=== PATIENT | female | born 1950 | race Caucasian/White ===

== ENCOUNTER 2021-02-10 13:30 | Emergency (ER) | payer MEDICARE, MEDICAID, SELFPAY ==
[2021-02-10 13:40] VITALS: BP 164/74; PULSE 107; RESP 18; TEMP 36.7; O2SAT 97; BMI 25.4
[2021-02-10 14:00] VITALS: BP 156/68; PULSE 102; O2SAT 98
[2021-02-10 14:07] LABS: Add Manual Diff / Slide Review NO; Basophils Absolute Auto 100 /uL (0-100); Basophils Percent Auto 0.9 % (0-2); Eosinophils Absolute Auto 100 /uL (0-450); Eosinophils Percent Auto 0.9 % (2-4); Hemoglobin 12.9 g/dL (12.0-16.0); Lymphocytes Absolute Auto 1600 /uL (1100-4500); Lymphocytes Percent Auto 21.3 % (25-40); Mean Corpuscular HGB Conc 33.1 % (30-36); Mean Corpuscular Hemoglobin 29.8 PG (26-34); Mean Corpuscular Volume 89.8 fL (80-100); Monocytes Absolute Auto 500 /uL (0-900); Monocytes Percent Auto 7.2 % (3-14); Neutrophils Absolute Auto 5200 /uL (1500-7000); Neutrophils Percent Auto 69.7 % (50-75); Platelet Count 234 X10^3/uL (150-400); Red Blood Cell Count 4.34 X10^6/uL (4.0-5.2); Red Cell Distribution Width 13.6 % (11.6-14.8); White Blood Cell Count 7.5 X10^3/uL (4.5-11.0)
[2021-02-10 14:11] LABS: HEMOLYSIS < 15 (0-50)
--- NOTE | 2021-02-10 14:14 | ED.GENADULT ---
HPI - General Adult General Chief complaint: Dizziness Stated complaint: up and down blood pressure. very faint. Time Seen by Provider: 02/10/21 13:44 Source: patient Mode of arrival: Ambulatory Limitations: no limitations History of Present Illness HPI narrative: Patient is a 70-year-old female. Does have a history of high blood pressure. Is on medications for her blood pressure. She has been taking as directed. She did not take an extra dose of it this morning. She states that this morning at around noon she became very lightheaded. She went to lay down. She took her blood pressure. It was 99/62. She states that this is low for her as she is normally elevated. She continued to feel poorly and her blood pressure began to increase slowly. It then was elevated then decreased again. It she came in because she had these changes in blood pressures and because her lightheadedness. Related Data Home Medications Medication Instructions Recorded Confirmed [COD LIVER OIL] PO QDAY #0 08/04/17 [FRANKINCENSE] PO QDAY #0 08/04/17 [HAWTHORN] PO QDAY #0 08/04/17 [OREGANOL] PO QDAY #0 08/04/17 Allergies Allergy/AdvReac Type Severity Reaction Status Date / Time Penicillins [PENICILLINS] Allergy Unknown Unverified 11/05/17 12:56 Review of Systems Constitutional Constitutional: Denies fever(s) Cardiovascular Cardiovascular: Denies chest pain, Reports syncope and Denies rapid heart rate Respiratory Respiratory: Reports system reviewed and no additional complaints, except as documented Gastrointestinal Gastrointestinal: Reports system reviewed and no additional complaints, except as documented, Reports nausea and Denies vomiting Genitourinary Genitourinary: Reports system reviewed and no additional complaints, except as documented and Denies dysuria Musculoskeletal Musculoskeletal: Reports system reviewed and no additional complaints, except as documented Integumentary/Breasts Skin/Breast: Reports system reviewed and no additional complaints, except as documented Neurologic Neurologic: Reports syncope Psychiatric Psychiatric: Reports system reviewed and no additional complaints, except as documented Hematologic/Lymphatic On Anticoagulants: No Allergic/Immunologic Allergic/Immunologic: Reports system reviewed and no additional complaints, except as documented Patient History Medical History Hypertension Social History Smoking Status: Former smoker Smoking Status: Former smoker alcohol intake frequency: 0-2 drinks per day Substance Use Type: does not use Exam Initial Vital Signs Initial Vital Signs: Vital Signs Temperature 98.1 F 02/10/21 13:40 Pulse Rate 107 H 02/10/21 13:40 Respiratory Rate 18 02/10/21 13:40 Blood Pressure 164/74 H 02/10/21 13:40 Pulse Oximetry 97 02/10/21 13:40 Const General: cooperative, healthy appearing and comfortable HENND Head: normal to inspection and normocephalic Eyes General: appearance normal, both eyes and all related structures Chest Chest: normal inspection of the chest Resp Effort & Inspection: normal respiratory effort Auscultation: clear to auscultation bilaterally Cardio Rate: regular rate Rhythm: regular rhythm GI Inspection: normal to inspection Skin Lesions: no lesions Neuro General: patient alert, patient awake, patient oriented x3 and moves all extremities Extrem General: normal to inspection and capillary refill normal Psych Appearance: grossly normal and well kempt Course Orders Ordered: ED Orders 02/10/21 13:37 EKG-12 Lead Stat 02/10/21 14:00 Complete Blood Count AUTO DIFF Stat Comprehensive Metabolic Panel Stat Lipase Stat Troponin & CK Cardiac Panel Stat Vital Signs Vital signs: Vital Signs - 8 hr 02/10/21 13:40 02/10/21 14:00 02/10/21 14:35 Temperature 98.1 F Pulse Rate 107 H 102 H 92 H Respiratory Rate 18 Blood Pressure 164/74 H 156/68 H 160/68 H Pulse Oximetry 97 98 97 02/10/21 15:00 02/10/21 15:20 Temperature Pulse Rate 85 86 Respiratory Rate Blood Pressure 155/77 H 164/85 H Pulse Oximetry 99 98 Medical Decision Making Lab Data Lab results reviewed: Yes I reviewed the patient's lab results. Result diagrams: 02/10/21 14:00 02/10/21 14:00 Labs: Lab Results 02/10/21 02/10/21 Range/Units 14:00 14:00 WBC 7.5 (4.5-11.0) X10^3/uL RBC 4.34 (4.0-5.2) X10^6/uL Hgb 12.9 (12.0-16.0) g/dL Hct 39.0 (36-46) % MCV 89.8 (80-100) fL MCH 29.8 (26-34) PG MCHC 33.1 (30-36) % RDW 13.6 (11.6-14.8) % Plt Count 234 (150-400) X10^3/uL Neut % (Auto) 69.7 (50-75) % Lymph % (Auto) 21.3 L (25-40) % [place] % (Auto) 7.2 (3-14) % Eos % (Auto) 0.9 L (2-4) % Baso % (Auto) 0.9 (0-2) % Neut # (Auto) 5200 (0330-2827) /uL Lymph # (Auto) 1600 (8084-3735) /uL [place] # (Auto) 500 (0-900) /uL Eos # (Auto) 100 (0-450) /uL Baso # (Auto) 100 (0-100) /uL Sodium 136 L (137-145) mmol/L Potassium 3.4 (3.4-5.1) mmol/L Chloride 104 (98-107) mmol/L Carbon Dioxide 24 (22-32) mmol/L BUN 20 H (7-17) mg/dL Creatinine 0.92 (0.52-1.04) mg/dL Estimated GFR > 60.0 (>60) mL/min BUN/Creatinine Ratio 21.7 (6-22) Glucose 132 H (80-110) mg/dL Calcium 10.0 (8.4-10.2) mg/dL Total Bilirubin 1.4 H (0.2-1.3) mg/dL AST 39 H (14-36) IU/L ALT 22 (<35) IU/L Alkaline Phosphatase 62 (38-126) U/L Total Creatine Kinase 138 H (30-135) U/L CK-MB (CK-2) 1.60 (<2.37) ng/mL CK-MB (CK-2) Rel Index 1.2 L (1.5-5.0) % Troponin I < 0.012 (0.01-0.034) ng/mL Total Protein 7.6 (6.3-8.2) g/dL Albumin 4.5 (3.5-5.0) g/dL Globulin 3.1 (1.7-4.1) g/dL Albumin/Globulin Ratio 1.5 (1.0-2.8) Lipase 160 (23-300) U/L Urine Dip Bedside Urine Glucose Negative Bedside Urine Bilirubin - Negative Bedside Urine Ketone - Negative Urine Specific [place] 1.010 Bedside Urine Occult Blood - Negative Bedside Urine pH 6 Bedside Urine Protein - Negative Bedside Urine Urobilinogen - Negative Bedside Urine Nitrite - Negative Bedside Urine Leukocytes - Negative Esterase Point of care testing: Urine Dip Bedside Urine Glucose Negative Bedside Urine Bilirubin - Negative Bedside Urine Ketone - Negative Urine Specific [place] 1.010 Bedside Urine Occult Blood - Negative Bedside Urine pH 6 Bedside Urine Protein - Negative Bedside Urine Urobilinogen - Negative Bedside Urine Nitrite - Negative Bedside Urine Leukocytes - Negative Esterase ECG Data Attestation: I personally reviewed and interpreted this ECG as follows: Interpretation: Normal sinus rhythm Ventricular rate 97 Normal axis Normal QRS Normal QTC No ST T wave changes MDM Narrative Medical decision making narrative: Neurovascular intact, labs unremarkable. EKG is unremarkable. Low suspicion for ACS. Blood pressure has been relatively stable here in the ER. Informed her that she should continue to take her blood pressure at home and to discuss with her primary doctor if she continues to have issues. No indication for admission to the hospital. She was given return precautions and follow-up instructions. She expressed understanding and agreement. Discharge Plan Departure Patient Disposition: Home Clinical Impression: Blood pressure instability Instructions: How to Monitor Your Blood Pressure at Home Activity Restrictions/Additional Instructions: I do recommend that you continue to take your blood pressure at home and record the values. Continue to take all of your medications as directed. Contact your primary doctor for follow-up. Return to the emergency department for any new or worsening symptoms Prescriptions: No Action [COD LIVER OIL] PO QDAY Qty: 0 RF: 0 [HAWTHORN] PO QDAY Qty: 0 RF: 0 [OREGANOL] PO QDAY Qty: 0 RF: 0 [FRANKINCENSE] PO QDAY Qty: 0 RF: 0
[2021-02-10 14:18] LABS: Alanine Aminotransferase 22 IU/L (<35); Albumin 4.5 g/dL (3.5-5.0); Albumin Globulin Ratio 1.5 (1.0-2.8); Alkaline Phosphatase 62 U/L (38-126); Aspartate Aminotransferase 39 IU/L (14-36); BUN Creatinine Ratio 21.7 (6-22); Bilirubin Total 1.4 mg/dL (0.2-1.3); Blood Urea Nitrogen 20 mg/dL (7-17); Carbon Dioxide 24 mmol/L (22-32); Chloride 104 mmol/L (98-107); Creatine Kinase 138 U/L (30-135); Estimated Glomerular Filt Rate > 60.0 mL/min (>60); Globulin 3.1 g/dL (1.7-4.1); Glucose 132 mg/dL (80-110); Lipase 160 U/L (23-300); Potassium 3.4 mmol/L (3.4-5.1); Sodium 136 mmol/L (137-145); Total Protein 7.6 g/dL (6.3-8.2)
[2021-02-10 14:29] LABS: Troponin I < 0.012 ng/mL (0.01-0.034)
[2021-02-10 14:33] LABS: CKMB % Relative Index 1.2 % (1.5-5.0)
[2021-02-10 14:35] VITALS: BP 160/68; PULSE 92; O2SAT 97
[2021-02-10 15:00] VITALS: BP 131/60; BP 155/77; PULSE 85; PULSE 88; O2SAT 97; O2SAT 99
[2021-02-10 15:20] VITALS: BP 164/85; PULSE 86; O2SAT 98
== END 2021-02-10 15:39 | disposition home or self-care (01) ==
PROVIDERS: Emergency Provider Emergency Medicine
DX: R42 Dizziness and giddiness (principal); I99.8 Other disorder of circulatory system; R07.9 Chest pain, unspecified
CPT/HCPCS: 36415; 80053; 81003; 82550; 82553; 83690; 84484; 85025; 93005; 93010; 99283; 99284

== ENCOUNTER 2022-03-26 13:57 | Observation (INO) | payer MEDICARE, MEDICAID, SELFPAY ==
[2022-03-26] VITALS (8 sets, daily range): BP systolic 146–184; BP diastolic 67–91; PULSE 68–99; RESP 16–38; TEMP 36.5–36.9; O2SAT 97–99; BMI 25.2; BMI 24.7
--- NOTE | 2022-03-26 14:05 | DI.CT.S_ITS ---
PROCEDURE: CT HEAD/BRAIN WO CON INDICATIONS: near syncope, word finding TECHNIQUE: Noncontrast 4.5 mm thick angled axial sections acquired from the foramen magnum to the vertex, with coronal and sagittal reformats. For radiation dose reduction, the following was used: automated exposure control, adjustment of mA and/or kV according to patient size. COMPARISON: [facility], MR, BRAIN WITHOUT CONTRAST, 08/04/2017, 16:00. FINDINGS: Image quality: Excellent. CSF spaces: Basal cisterns are patent. No extra-axial fluid collections. Ventricles are normal in size and shape. Brain: No midline shift. Small extra-axial calcified mass in the right frontal lobe. No intracranial hemorrhage. No area of hypodensity in a large vascular distribution to suggest acute infarction. Periventricular hypodensity consistent with chronic microvascular ischemic change. Age-related parenchymal loss. Skull and face: Calvarium and visualized facial bones are intact, without suspicious lesions. Sinuses: Visualized sinuses and mastoids are clear. IMPRESSION: No acute intracranial abnormality. Chronic microvascular ischemic disease. Probable small calcified right frontal meningioma. Dictated by: Sukhjinder Mukherjee M.D. on 03/26/2022 at 14:37 Approved by: Sukhjinder Mukherjee M.D. on 03/26/2022 at 14:41
--- NOTE | 2022-03-26 14:05 | DI.RAD.S_ITS ---
PROCEDURE: XR CHEST 1V INDICATIONS: chest pain TECHNIQUE: One view of the chest was acquired. COMPARISON: [facility], CR, XR CHEST 2 VIEWS, 10/10/2017, 10:53. FINDINGS: Surgical changes and devices: None. Lungs and pleura: Lungs are clear. No pleural effusions or pneumothorax. Mediastinum: Mediastinal contours appear unchanged. Heart size is within normal limits. Bones and chest wall: No suspicious bony lesions. Overlying soft tissues appear unremarkable. IMPRESSION: No acute cardiopulmonary abnormality. Dictated by: Sukhjinder Mukherjee M.D. on 03/26/2022 at 14:41 Approved by: Sukhjinder Mukherjee M.D. on 03/26/2022 at 14:43
[2022-03-26 14:13] LABS: Add Manual Diff / Slide Review NO; Basophils Absolute Auto 100 /uL (0-100); Basophils Percent Auto 1.2 % (0-2); Eosinophils Absolute Auto 100 /uL (0-450); Eosinophils Percent Auto 1.4 % (2-4); Hematocrit 41.8 % (36-46); Hemoglobin 13.7 g/dL (12.0-16.0); Lymphocytes Absolute Auto 2500 /uL (1100-4500); Lymphocytes Percent Auto 40.2 % (25-40); Mean Corpuscular HGB Conc 32.7 % (30-36); Mean Corpuscular Hemoglobin 29.5 PG (26-34); Mean Corpuscular Volume 90.1 fL (80-100); Monocytes Absolute Auto 500 /uL (0-900); Monocytes Percent Auto 7.7 % (3-14); Neutrophils Absolute Auto 3000 /uL (1500-7000); Neutrophils Percent Auto 49.5 % (50-75); Platelet Count 264 X10^3/uL (150-400); Red Blood Cell Count 4.64 X10^6/uL (4.0-5.2); Red Cell Distribution Width 14.4 % (11.6-14.8); White Blood Cell Count 6.1 X10^3/uL (4.5-11.0)
[2022-03-26 14:20] LABS: Prothrombin Time 11.3 SECONDS (10.1-12.7)
[2022-03-26 14:22] LABS: PTT Partial Thromboplastin Tim 31 SECONDS (26-36)
[2022-03-26 14:25] LABS: Alanine Aminotransferase 16 IU/L (<35); Albumin 4.7 g/dL (3.5-5.0); Albumin Globulin Ratio 1.3 (1.0-2.8); Alkaline Phosphatase 46 U/L (38-126); Aspartate Aminotransferase 27 IU/L (14-36); BUN Creatinine Ratio 16.3 (6-22); Bilirubin Total 0.9 mg/dL (0.2-1.3); Blood Urea Nitrogen 17 mg/dL (7-17); Calcium 10.2 mg/dL (8.4-10.2); Carbon Dioxide 23 mmol/L (22-32); Chloride 105 mmol/L (98-107); Creatine Kinase 77 U/L (30-135); Estimated Glomerular Filt Rate 57 mL/min (>60); Globulin 3.6 g/dL (1.7-4.1); Glucose 120 mg/dL (80-110); HEMOLYSIS < 15 (0-50); Lipase 193 U/L (23-300); Magnesium 1.7 mg/dL (1.6-2.3); Potassium 3.6 mmol/L (3.4-5.1); Sodium 138 mmol/L (137-145); Total Protein 8.3 g/dL (6.3-8.2)
[2022-03-26 14:36] LABS: Troponin I < 0.012 ng/mL (0.01-0.034)
--- NOTE | 2022-03-26 15:18 | ED.SYNCOPE ---
HPI - Syncope General Chief Complaint: Syncope Stated Complaint: near syncope Time Seen by Provider: 03/26/22 14:39 Source: patient and EMS Mode of arrival: EMS Limitations: no limitations History of Present Illness HPI narrative: This is a 61-year-old female with history of atypical migraine, hypertension who presents with complaint of near syncopal episodes slight headedness she started having symptoms about a week ago have been intermittent but typically when she is upright or looking. Patient notes she is had some blurry vision which is still persistent. She denies headache, she does have a history of silent migraines states she will get an aura but has not had any recently. She describes dizziness and near syncopal episodes with tunnel vision. No loss of consciousness she is felt shaky and weak. She denies any vertigo symptoms. She did check her blood pressure home she was hypotensive 103/62 but rechecked and was 128/60. Patient denies chest pain or pressure she is had some shortness of breath on occasion but not persistently, she had nausea today but not any vomiting. She states she had trouble repeating words and describes expressive aphasia where she knew what she wanted to say but could not repeat a sentence back to the EMS medics and her daughter at bedside states she also seemed to have trouble expressing herself earlier today. Patient thought she might have noticed a little droop on the right. She states no new numbness or tingling, no weakness, no issues with bowel movements, urination or swelling of extremities. Patient is on 50 mg losartan daily, she is had a hysterectomy, she is allergic to penicillin and shrimp, no tobacco, she is 2 or 3 alcoholic drinks weekly, no illicit. Her primary care is through [facility]. Related Data Home Medications Medication Instructions Recorded Confirmed [COD LIVER OIL] PO QDAY ##0 08/04/17 [FRANKINCENSE] PO QDAY ##0 08/04/17 [HAWTHORN] PO QDAY ##0 08/04/17 [OREGANOL] PO QDAY ##0 08/04/17 Allergies Allergy/AdvReac Type Severity Reaction Status Date / Time Penicillins [PENICILLINS] Allergy Unknown Unverified 11/05/17 12:56 Review of Systems Review of Systems ROS Unobtainable: All systems reviewed & are unremarkable except as noted in HPI and below Patient History Medical History Hypertension Social History Smoking Status: Former smoker Smoking Status: Former smoker alcohol intake frequency: 0-2 drinks per day Substance Use Type: does not use Exam Narrative Exam Narrative: GEN: well nourished, well appearing female, alert and oriented x 3, patient appears to be in mild distress. HEENT: Atraumatic, pupils are equal round reactive to light, extraocular movements are intact, nares are clear, TMs are clear with no fluid, there is no conjunctival pallor. Throat is clear without any exudates, erythema, tonsillar enlargement or uvular deviation, possible slight decrease of nasal labial fold but difficult to ascertain, no other facial droop noted. HEART: Regular rate and rhythm without murmur, clicks, rubs. No carotid bruits, pulses are equal in upper and lower extremities LUNGS:Lungs clear to auscultation, no wheezes, rales, crackles, chest moves symmetrically ABD:bowel sounds normal, soft, non-tender, no guarding, rebound, rigidity, no masses noted, no hepatosplenomegaly :No CVA tenderness MSCL: Non-tender, no muscle atrophy, muscles strength 5/5 upper and lower extremities, full range of motion, normal gait NEURO:CN 2-12 intact, sensation normal, reflexes 2/4 upper and lower extremities. finger nose finger test normal, heel brink test normal, romberg normal SKIN: No rash, erythema or other skin changes Initial Vital Signs Initial Vital Signs: Vital Signs Temperature 98.4 F 03/26/22 14:11 Pulse Rate 95 H 03/26/22 14:11 Respiratory Rate 16 03/26/22 14:11 Blood Pressure 146/70 H 03/26/22 14:11 Pulse Oximetry 97 03/26/22 14:11 Oxygen Delivery Method 03/26/22 14:11 Scores NIH Stroke Scale Level of Conciousness: Alert, keenly responsive Ask month/age: Answers both questions correctly. Open/close eyes, close hand: Performs both tasks correctly Best gaze horizontal: Normal Visual smith: No visual loss Facial palsy: Minor paralysis, flattened nasolabial fold, asymmetry on smiling Left arm drift: No drift for full 10 sec Right arm drift: No drift for full 10 sec Left leg drift: No drift for full 5 sec Right leg drift: No drift for full 5 sec Limb ataxia: Absent Sensory on face/arms/legs: Normal, no sensory loss Best language: Mild to moderate, slurs some words Dysarthria: Normal Extinction or inattention: No abnormality Total NIH Stroke scale score: 2 Course Orders Ordered: ED Orders 03/26/22 13:40 BNP [NT-proBNP (BNP-Adult 18+)] Stat Complete Blood Count AUTO DIFF Stat Comprehensive Metabolic Panel Stat Lipase Stat Magnesium Stat Partial Thromboplastin Time Stat Prothrombin Time INR Stat Troponin & CK Cardiac Panel Stat 03/26/22 14:05 CT head/brain wo con Stat XR chest 1V Stat EKG-12 Lead Stat 03/26/22 15:11 COVID19 -Nasal RAPID/Pre-Proc Stat 03/26/22 16:01 CT angio head and neck Stat 03/26/22 20:01 EC echo doppler complete Stat MR head/brain wo con Stat Discontinued Medications Aspirin (Aspirin 81 Mg Chew Tab) 324 mg PO NOW ONE Stop: 03/26/22 16:02 Last Admin: 03/26/22 16:31 Dose: 324 mg Documented By: LINDA Vital Signs Vital signs: Vital Signs - 8 hr 03/26/22 14:11 03/26/22 17:30 03/26/22 17:30 Temperature 98.4 F Pulse Rate 95 H 87 Respiratory Rate 16 35 H Blood Pressure 146/70 H 181/91 H Pulse Oximetry 97 98 Oxygen Delivery Method Room Air 03/26/22 18:00 03/26/22 18:00 Temperature Pulse Rate 83 Respiratory Rate 35 H Blood Pressure 171/83 H Pulse Oximetry 98 Oxygen Delivery Method MDM - Syncope Lab Data Result diagrams: 03/26/22 13:40 03/26/22 13:40 Labs: Lab Results 03/26/22 03/26/22 03/26/22 Range/Units 13:40 13:40 13:40 WBC 6.1 (4.5-11.0) X10^3/uL RBC 4.64 (4.0-5.2) X10^6/uL Hgb 13.7 (12.0-16.0) g/dL Hct 41.8 (36-46) % MCV 90.1 (80-100) fL MCH 29.5 (26-34) PG MCHC 32.7 (30-36) % RDW 14.4 (11.6-14.8) % Plt Count 264 (150-400) X10^3/uL Neut % (Auto) 49.5 L (50-75) % Lymph % (Auto) 40.2 H (25-40) % [place] % (Auto) 7.7 (3-14) % Eos % (Auto) 1.4 L (2-4) % Baso % (Auto) 1.2 (0-2) % Neut # (Auto) 3000 (1230-4652) /uL Lymph # (Auto) 2500 (1059-3732) /uL [place] # (Auto) 500 (0-900) /uL Eos # (Auto) 100 (0-450) /uL Baso # (Auto) 100 (0-100) /uL PT 11.3 (10.1-12.7) SECONDS INR 1.0 (0.9-1.3) APTT 31 (26-36) SECONDS Sodium 138 (137-145) mmol/L Potassium 3.6 (3.4-5.1) mmol/L Chloride 105 (98-107) mmol/L Carbon Dioxide 23 (22-32) mmol/L BUN 17 (7-17) mg/dL Creatinine 1.04 (0.52-1.04) mg/dL Estimated GFR 57 L (>60) mL/min BUN/Creatinine Ratio 16.3 (6-22) Glucose 120 H (80-110) mg/dL Calcium 10.2 (8.4-10.2) mg/dL Magnesium 1.7 (1.6-2.3) mg/dL Total Bilirubin 0.9 (0.2-1.3) mg/dL AST 27 (14-36) IU/L ALT 16 (<35) IU/L Alkaline Phosphatase 46 (38-126) U/L Total Creatine Kinase 77 (30-135) U/L CK-MB (CK-2) TNP CK-MB (CK-2) Rel Index TNP Troponin I < 0.012 (0.01-0.034) ng/mL NT-Pro-B Natriuret Pep (<125) pg/mL Total Protein 8.3 H (6.3-8.2) g/dL Albumin 4.7 (3.5-5.0) g/dL Globulin 3.6 (1.7-4.1) g/dL Albumin/Globulin Ratio 1.3 (1.0-2.8) Lipase 193 (23-300) U/L SARS-CoV-2 (PCR) (Negative) 03/26/22 03/26/22 Range/Units 13:40 15:11 WBC (4.5-11.0) X10^3/uL RBC (4.0-5.2) X10^6/uL Hgb (12.0-16.0) g/dL Hct (36-46) % MCV (80-100) fL MCH (26-34) PG MCHC (30-36) % RDW (11.6-14.8) % Plt Count (150-400) X10^3/uL Neut % (Auto) (50-75) % Lymph % (Auto) (25-40) % [place] % (Auto) (3-14) % Eos % (Auto) (2-4) % Baso % (Auto) (0-2) % Neut # (Auto) (7013-1128) /uL Lymph # (Auto) (4031-5644) /uL [place] # (Auto) (0-900) /uL Eos # (Auto) (0-450) /uL Baso # (Auto) (0-100) /uL PT (10.1-12.7) SECONDS INR (0.9-1.3) APTT (26-36) SECONDS Sodium (137-145) mmol/L Potassium (3.4-5.1) mmol/L Chloride (98-107) mmol/L Carbon Dioxide (22-32) mmol/L BUN (7-17) mg/dL Creatinine (0.52-1.04) mg/dL Estimated GFR (>60) mL/min BUN/Creatinine Ratio (6-22) Glucose (80-110) mg/dL Calcium (8.4-10.2) mg/dL Magnesium (1.6-2.3) mg/dL Total Bilirubin (0.2-1.3) mg/dL AST (14-36) IU/L ALT (<35) IU/L Alkaline Phosphatase (38-126) U/L Total Creatine Kinase (30-135) U/L CK-MB (CK-2) CK-MB (CK-2) Rel Index Troponin I (0.01-0.034) ng/mL NT-Pro-B Natriuret Pep 153 H (<125) pg/mL Total Protein (6.3-8.2) g/dL Albumin (3.5-5.0) g/dL Globulin (1.7-4.1) g/dL Albumin/Globulin Ratio (1.0-2.8) Lipase (23-300) U/L SARS-CoV-2 (PCR) Negative (Negative) Urine Dip Bedside Urine Glucose Negative Bedside Urine Bilirubin - Negative Bedside Urine Ketone - Negative Urine Specific [place] 1.010 Bedside Urine Occult Blood - Negative Bedside Urine pH 6.0 Bedside Urine Protein - Negative Bedside Urine Urobilinogen - Negative Bedside Urine Nitrite - Negative Bedside Urine Leukocytes - Negative Esterase Imaging Data CT scan - head: Radiologist's Impression: Close Head CT (Signed) Call,[facility] 03/26/22 Chest X-Ray (Signed) Call,[facility] 03/26/22 Launch?[place] [address] CT Scan Report Signed Patient: Meg Ibarra MR#: [id number] : 1950 Acct:[id number] Age/Sex: 71 / F Date of Service: 03/26/22 Loc: Accession Number: [id number] ?? Procedure: CT head/brain wo con Ordering Provider: Malina Wheeler D.O. PROCEDURE:? CT HEAD/BRAIN WO CON ? INDICATIONS:? near syncope, word finding ? TECHNIQUE:? Noncontrast 4.5 mm thick angled axial sections acquired from the foramen magnum to the vertex, with coronal and sagittal reformats.? For radiation dose reduction, the following was used:? automated exposure control, adjustment of mA and/or kV according to patient size.? ? COMPARISON:? [facility], MR, BRAIN WITHOUT CONTRAST, 08/04/2017, 16:00. ? FINDINGS:? Image quality:? Excellent.? ? CSF spaces:? Basal cisterns are patent.? No extra-axial fluid collections.? Ventricles are normal in size and shape.? ? Brain:? No midline shift.? Small extra-axial calcified mass in the right frontal lobe.? No intracranial hemorrhage.? No area of hypodensity in a large vascular distribution to suggest acute infarction. Periventricular hypodensity consistent with chronic microvascular ischemic change. Age-related parenchymal loss. ? Skull and face:? Calvarium and visualized facial bones are intact, without suspicious lesions.? ? Sinuses:? Visualized sinuses and mastoids are clear.? ? IMPRESSION:? No acute intracranial abnormality. ? Chronic microvascular ischemic disease. ? Probable small calcified right frontal meningioma. ? ? Dictated by: Sukhjinder Mukherjee M.D. on 03/26/2022 at 14:37 ? ? Approved by: Sukhjinder Mukherjee M.D. on 03/26/2022 at 14:41?? CTA - brain/neck: Radiologist's Impression: Meg Ibarra??71??F??1950 ? Allergy/Adv: Penicillins Close Head/Neck CTA (Signed) Socrates Tinajero - 03/26/[address] (Signed) Call,Sukhjinder - 03/26/22 Chest X-Ray (Signed) Call,Sukhjinder - 03/26/22 Launch?[place] [address] CT Scan Report Signed Patient: Meg Ibarra MR#: [id number] : 1950 Acct:[id number] Age/Sex: 71 / F Date of Service: 03/26/22 Loc: ED Accession Number: [id number] ?? Procedure: CT angio head and neck Ordering Provider: Malina Wheeler D.O. PROCEDURE:? CT ANGIO HEAD AND NECK ? INDICATIONS:? expressive aphasia, near syncope ? TECHNIQUE:? Noncontrast images were performed earlier in the day and not repeated.? ? After the administration of intravenous contrast, 1 mm thick sections acquired from the aortic arch through the [place] of [place].? Post-contrast 4.5 mm thick sections then re-acquired from the foramen magnum to the vertex.? 3-dimensional tfavmyw-dbpnqjrgj-xfjtoqcqed (MIP) and/or volume rendering reformats were acquired of the central intracranial vasculature and neck separately. For radiation dose reduction, the following was used:? automated exposure control, adjustment of mA and/or kV according to patient size.? ? COMPARISON:? [facility], CR, XR CHEST 1V, 03/26/2022, 14:23.? [facility], CT, CT HEAD/BRAIN WO CON, 03/26/2022, 14:19.? [facility], MR, BRAIN WITHOUT CONTRAST, 08/04/2017, 16:00.? [facility], US, US CAROTID BILATERAL, 04/07/2018, 15:16. ? FINDINGS:? Image quality:? Excellent.? ? BRAIN:? CSF spaces:? Ventricles are normal in size and shape.? Basal cisterns are patent.? No extra-axial fluid collections.? ? Brain:? No midline shift.? No intracranial bleeds.? There is a likely rim calcified right frontal meningioma again seen, measuring 1 cm.? Nicole-white matter interface appears intact.? ? Skull and face:? Calvarium and facial bones appear intact, without suspicious lesions.? Orbits appear normal.? ? Sinuses:? Sinuses and mastoids are clear.? ? HEAD CT ANGIOGRAPHY:? Anterior circulation:? Intracranial internal carotid arteries are normal in size and flow.? The flow within the paired anterior cerebral arteries is normal and symmetric.? The flow within the middle cerebral arteries is normal and symmetric.? The anterior communicating artery is seen.? No aneurysms are seen.? ? Posterior circulation:? The left vertebral artery largely terminates in the left posterior inferior cerebellar artery.? The right V4 segment is within normal limits.? There is a normal appearing basilar artery.? Flow within the posterior cerebral arteries is normal and symmetric.? No aneurysms are seen.? ? NECK CT ANGIOGRAPHY:? Carotid system:? The great vessels demonstrate a conventional anatomy as they arise from the aortic arch.? The origins of the common carotid arteries appear patent.? The common carotid arteries demonstrate normal caliber and courses.? The bifurcation regions are both widely patent.? The internal carotid arteries demonstrate normal calibers and courses.? ? Posterior circulation:? The origins of the vertebral arteries both appear widely patent.? The more superior extracranial portions of both vertebral arteries also demonstrate normal courses and calibers.? They join to form a normal appearing basilar artery.? ? Soft tissues:? Visualized neck soft tissues demonstrate no suspicious abnormalities.? ? Bones:? No suspicious bony lesions.? Visualized cervical spine appears normally aligned.? Moderate cervical spine degenerative changes are seen. ? ? IMPRESSION:? No significant intracranial arterial abnormality is seen.? ? Within the arteries of the neck, no hemodynamically significant stenosis can be seen. ? ? If there is strong clinical suspicion for an acute stroke, please consider a brain MRI for further evaluation, as it is more sensitive (assuming that there is no contraindication to MRI). ? ? ? Incidental note is made of: Apparent 1 cm rim calcified right frontal extra-axial meningioma Cervical spine degenerative change ? Any quantitative measurements of stenosis were performed using NASCET criteria.? ? ? Dictated by: Socrates Tinajero M.D. on 03/26/2022 at 15:40 ? ? Approved by: Socrates Tinajero M.D. on 03/26/2022 at 15:44?? ECG Data Attestation: I personally reviewed and interpreted this ECG as follows: Prior ECG tracings: not available for review Interpretation: Sinus rhythm rate of 94 DC 192 QRS is 72 and QTC of 430. No acute ST changes patient has Q-wave in 3 and AVF. No elevation. No priors available MDM Narrative Medical decision making narrative: This is a 71-year-old female who presents with multiple near syncopal type episodes but also some expressive aphasia earlier today and some description of blurry vision. Patient is noted this has been going on for several days. Her and her daughter both notes some expressive aphasia which has seemed to improved. She was hypotensive on home blood pressure check 103/62 with a low-dose but on repeat was 120s. Patient has not had any other numbness, tingling or other neurologic changes she does describe maybe some facial droop change on the right. Patient's initial head CT is negative except for meningioma which is small in unlikely cause of her symptomatology, CBC, troponin CMP are negative. Chest x-ray shows no acute change. No other clear cause TIA versus syncope, arrhythmia or other causes were entertained. CT head and neck angio was obtained for TIA workup. Patient has an NIH of 1 with some difficulty with words on NIH scale. Patient is outside the window for tPA. Also considered possible valvular or cardiac changes and patient would benefit from observation for TIA workup and echo and cardiac labs. Spoke with hospitalist, IVON Willett who accepts for observation. Asked if we would go ahead and order MRI we might not be able to get it tonight but currently get the order in. Discharge Plan Departure Patient Disposition: Admitted as Observation Clinical Impression: TIA (transient ischemic attack), Near syncope
[2022-03-26 15:58] LABS: COVID19 -Nasal RAPID Negative (Negative)
[2022-03-26 16:00] LABS: NT-proBNP (BNP-Adult 18+) 153 pg/mL (<125)
--- NOTE | 2022-03-26 16:01 | DI.CT.S_ITS ---
PROCEDURE: CT ANGIO HEAD AND NECK INDICATIONS: expressive aphasia, near syncope TECHNIQUE: Noncontrast images were performed earlier in the day and not repeated. After the administration of intravenous contrast, 1 mm thick sections acquired from the aortic arch through the [place] of [place]. Post-contrast 4.5 mm thick sections then re-acquired from the foramen magnum to the vertex. 3-dimensional qtjykrl-hrluvabbw-vbfzfmllxj (MIP) and/or volume rendering reformats were acquired of the central intracranial vasculature and neck separately. For radiation dose reduction, the following was used: automated exposure control, adjustment of mA and/or kV according to patient size. COMPARISON: [facility], CR, XR CHEST 1V, 03/26/2022, 14:23. [facility], CT, CT HEAD/BRAIN WO CON, 03/26/2022, 14:19. [facility], MR, BRAIN WITHOUT CONTRAST, 08/04/2017, 16:00. [facility], US, US CAROTID BILATERAL, 04/07/2018, 15:16. FINDINGS: Image quality: Excellent. BRAIN: CSF spaces: Ventricles are normal in size and shape. Basal cisterns are patent. No extra-axial fluid collections. Brain: No midline shift. No intracranial bleeds. There is a likely rim calcified right frontal meningioma again seen, measuring 1 cm. Nicole-white matter interface appears intact. Skull and face: Calvarium and facial bones appear intact, without suspicious lesions. Orbits appear normal. Sinuses: Sinuses and mastoids are clear. HEAD CT ANGIOGRAPHY: Anterior circulation: Intracranial internal carotid arteries are normal in size and flow. The flow within the paired anterior cerebral arteries is normal and symmetric. The flow within the middle cerebral arteries is normal and symmetric. The anterior communicating artery is seen. No aneurysms are seen. Posterior circulation: The left vertebral artery largely terminates in the left posterior inferior cerebellar artery. The right V4 segment is within normal limits. There is a normal appearing basilar artery. Flow within the posterior cerebral arteries is normal and symmetric. No aneurysms are seen. NECK CT ANGIOGRAPHY: Carotid system: The great vessels demonstrate a conventional anatomy as they arise from the aortic arch. The origins of the common carotid arteries appear patent. The common carotid arteries demonstrate normal caliber and courses. The bifurcation regions are both widely patent. The internal carotid arteries demonstrate normal calibers and courses. Posterior circulation: The origins of the vertebral arteries both appear widely patent. The more superior extracranial portions of both vertebral arteries also demonstrate normal courses and calibers. They join to form a normal appearing basilar artery. Soft tissues: Visualized neck soft tissues demonstrate no suspicious abnormalities. Bones: No suspicious bony lesions. Visualized cervical spine appears normally aligned. Moderate cervical spine degenerative changes are seen. IMPRESSION: No significant intracranial arterial abnormality is seen. Within the arteries of the neck, no hemodynamically significant stenosis can be seen. If there is strong clinical suspicion for an acute stroke, please consider a brain MRI for further evaluation, as it is more sensitive (assuming that there is no contraindication to MRI). Incidental note is made of: Apparent 1 cm rim calcified right frontal extra-axial meningioma Cervical spine degenerative change Any quantitative measurements of stenosis were performed using NASCET criteria. Dictated by: Socrates Tinajero M.D. on 03/26/2022 at 15:40 Approved by: Socrates Tinajero M.D. on 03/26/2022 at 15:44
[2022-03-26] MEDS: ASPIRIN 81 MG CHEW TAB 324 MG PO (16:31)
--- NOTE | 2022-03-26 20:01 | DI.ECHO.S_ITS ---
Version: 1 Study ID: [id number] [place] [address] Name: BISI ASCENCIO Study Date: 03/27/2022, 7: 30 AM : 1950 BP: 149 / 77 mmHg Gender: Female Height: 66 in Age: 71 Years Weight: 156 lb BSA: 1.80 mA? Ordering: KATHARINE ESTRADA Referring: KATHARINE ESTRADA Clinician: Svitlaan Griffith Reason For Study: TIA History: Summary Statements Normal sinus rhythm. Normal LV size and wall thickness. Normal wall motion and left ventricular systolic function. Ejection fraction is 50-55%. Stage I diastolic dysfunction. No significant valvular abnormalities. Normal chamber sizes. There is atherosclerotic plaque noted in the ascending aorta. Aortic dimensions are normal. No source of embolism found. No evidence of PFO based on color flow Doppler. No prior study available for comparison. Procedure: A two-dimensional transthoracic echocardiogram with color flow and Doppler was performed. The study quality was technically adequate. There is no prior echocardiogram noted for this patient. The patient was in sinus rhythm with heart rates between 65-71 bpm during the exam. Left Ventricle: The left ventricle is normal in size and wall thickness. The ejection fraction is estimated to be 50-55%. Right Ventricle: The right ventricle is normal in size and function. Atria: Both atria are normal in size. There is no Doppler evidence for an interatrial shunt. Mitral Valve: The mitral valve is normal in structure and function. There is trace mitral regurgitation. Aortic Valve: The aortic valve is trileaflet. The aortic valve opens well. There is no aortic valve stenosis. No aortic regurgitation is present. Tricuspid Valve: The tricuspid valve is normal in structure and function. The right ventricular systolic pressure is estimated to be at least 26 mmHg based on an estimated right atrial pressure of 8 mm Hg. There is mild tricuspid regurgitation. Pulmonic Valve: The pulmonic valve is not well seen, but is grossly normal. There is no pulmonic valvular regurgitation. Great Vessels: The aortic root is normal size. The IVC is dilated (diameter is greater than 2.1 cm) yet it collapses greater than 50% with a sniff. This suggests a right atrial pressure of 8 mm Hg. Pericardium/ Pleura: There is no pericardial effusion. There is no pleural effusion. 2D and M-Mode Measurements and Calculations LVIDd: 3.2 cm LVOT diam: 1.90 cm LVIDs: 2.08 cm Ao root diam: 3.1 cm IVSd: 1.03 cm Ao Arch Diam (Prox Trans): 2.8 cm LVPWd: 0.95 cm LV lee. diameter/BSA (cm/m^2): 1.78 LV sys. 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 RA area: 18.1 wagon driver salesperson? LA A2 area: 19.5 wagon driver salesperson? RA long axis: 5.2 cm LA length (vol): 5.4 cm RA vol: 53.5 ml LA vol: 52.6 ml RA : 29.7 ml/mA? LA vol index: 29.2 ml/mA? Doppler Measurements and Calculations Ao V2 max: 121.7 cm/sec LVOT Max Daniel: 104.1 cm/sec Ao V2 mean: 81.4 cm/sec LV V1 max P.3 mmHg Ao V2 VTI: 28.2 cm LV V1 VTI: 22.6 cm Ao max P.9 mmHg Ao mean P.0 mmHg RYAN(I,D): 2.27 wagon driver salesperson? RYAN(V,D): 2.42 wagon driver salesperson? RYAN indexed to BSA (cm^2/m^2): 1.26 sev ratio: 0.80 MV E max daniel: 81.7 cm/sec MV dec time: 0.29 sec MV A max daniel: 91.1 cm/sec MV E/A: 0.90 Med Peak E' Daniel: 6.3 cm/sec Lat Peak E' Daniel: 8.2 cm/sec E/e' average: 11.4 TR max daniel: 214.1 cm/sec PA mean P.87 mmHg TR max P.3 mmHg PA V2 max: 93.1 cm/sec Electronically signed by: Parris Elliott M.D. 03/27/2022, 8: 45 AM
--- NOTE | 2022-03-26 20:01 | DI.MRI.S_ITS ---
PROCEDURE: MR HEAD/BRAIN WO CON INDICATIONS: tia, near syncope TECHNIQUE: Noncontrast axial T1 spin echo, axial T2 fast spin echo, sagittal and axial FLAIR, coronal T2 fast spin echo, axial gradient echo, axial diffusion and ADC through the brain. COMPARISON: [facility], CT, CT ANGIO HEAD AND NECK, 03/26/2022, 16:07. [facility], MR, BRAIN WITHOUT CONTRAST, 08/04/2017, 16:00. FINDINGS: Image quality: There is mild motion artifact limiting evaluation. CSF Spaces: Basal cisterns are patent. No extra-axial fluid collections. Ventricles are normal in size and shape. Brain: No intracranial hemorrhage, mass, or mass effect. Nicole/white matter interface is preserved. Brainstem appears normal. Diffusion-weighted images demonstrate no acute infarcts. There are confluent subcortical and periventricular white matter areas of T2 hyperintensity redemonstrated. Normal intravascular flow voids are present. Skull and face: Calvarium has normal marrow signal. Orbits appear normal. Sinuses: Sinuses and mastoids are clear. IMPRESSION: 1. No infarct or other definite acute intracranial abnormality. 2. Extensive confluent subcortical and periventricular areas of white matter T2 hyperintensity redemonstrated. The findings are nonspecific and the differential includes severe chronic small vessel ischemic changes versus infectious or inflammatory processes such as demyelinating disease. Dictated by: Jamal Garcia M.D. on 03/26/2022 at 21:59 Approved by: Jamal Garcia M.D. on 03/26/2022 at 22:03
--- NOTE | 2022-03-26 21:46 | PC.NURSE ---
Pt updated to plan of care: She is admitted, but no beds available upstairs. Pt agreeable to stay in ER, comfort measures provided, pt oriented to room/unit.
[2022-03-26] MEDS: ATORVASTATIN 20 MG TABLET 80 MG PO (22:43)
[2022-03-26 22:58] LABS: Cholesterol 206 mg/dL (140-199); HDL Cholesterol 83 mg/dL (40-60); LDL Cholesterol Calculated 112 mg/dL (<100); Triglycerides 54 mg/dL (35-150)
[2022-03-26 23:07] LABS: Hemoglobin A1C% w Est Avg Glu 5.4 % (4.0-6.0)
[2022-03-26 23:24] LABS: Troponin I < 0.012 ng/mL (0.01-0.034)
[2022-03-27 00:42] VITALS: O2SAT 98
[2022-03-27] MEDS: SODIUM CHLORIDE 0.9% FLUSH 10 ML IV (02:41)
[2022-03-27 03:13] VITALS: BP 149/77; PULSE 66; RESP 18; TEMP 36.6; O2SAT 98
--- NOTE | 2022-03-27 03:20 | P.HP_ITS ---
History of Present Illness History of Present Illness Date Patient Seen: 03/26/22 Time Patient Seen: 20:51 Chief complaint: near syncope Narrative: Meg Ibarra?is a 61-year-old female with history of atypical migraine, hypertension who presents with complaint of near syncopal episodes with blurry vision , and expressive aphasia symptoms started about a week ago have been intermittent but typically when she is standing.? Patient initially had some blurry vision in the ED but now has resolved. She also demonstrated expressive aphasia while in the ambulance, she had trouble repeating words. knew what she wanted to say but could not repeat a sentence back to the EMS medics, her daughter reported in ED that she had trouble expressing herself earlier today.? History of silent migraines states she will get an aura but has not had any recently.? She describes dizziness and near syncopal episodes with tunnel vision.? Patient reported hypotensive 103/62 at home but recheck in ED 128/60.? All symptoms have resolved upon admit exam. Patient did report some slight skin sensation changes to the anterior right thigh and the bottom of the right foot that has persistent since March 20. Patient denies headache, No loss of consciousness, vertigo symptoms, URI s/s, tinnitus, changes in hearing, chest pain, shortness of breath, difficulty with speech, swallowing, balance, coordination, dexterity, tingling, no weakness, no issues with bowel movements, urination or swelling of extremities, abdominal pain, nausea, vomiting, diarrhea, fever, body aches, chills, recent illness injury or trauma. Patient is on 50 mg losartan daily, she is had a hysterectomy, she is allergic to penicillin and shrimp, no tobacco, she is 2 or 3 alcoholic drinks weekly, no illicit.? Her primary care is through [facility].? Patient is sitting comfortably in ED room during admit exam in no distress at this time. Vital signs are stable temp 98.4?, BP slightly elevated 171/83, HR 83 patient is slightly tachypneic with an RR 22, O2 saturation 98% on room air. Patient's CBC and CMP and liver panel all within normal limits with the exception of glucose 120, GFR 57, initial troponin WNL, NIH of 0, COVID is negative, BNP 153, head neck CTA is negative for any acute intracranial processes, head CT negative for any acute intracranial processes, chest x-ray negative for any acute cardio pulmonary processes. EKG sinus rhythm with a rate of [address] or T-wave changes there is a noted Q-wave in leads 3 and AVF seen on previous EKG. Patient admitted for neurological deficit blurry vision, expressive aphasia, near-syncope rule out TIA vs CVA. Patient History Medical History Essential hypertension Heart murmur Hypertension Kidney stone Surgical History (Updated 03/27/22 @ 03:40 by EMELYN Quevedo) History of appendectomy History of hysterectomy Family & Social History Family History (Updated 03/27/22 @ 03:41 by EMELYN Quevedo) Mother Cancer Father Congestive heart failure Hypertension Sister Heart attack Social History: household members children Prior Living Arrangements RV Safety & Behavioral: Feels Safe in Current Yes Environment Been Physically Hurt or No Threatened By a Person Tobacco & Substance use: Smoking Status Never smoker alcohol intake current alcohol intake frequency a few times a week Substance Use Type does not use Meds Home Medications and Allergies Home Medications Medication Instructions Recorded Confirmed Type [COD LIVER OIL] See Rx Instructions .Route 08/04/17 03/27/22 History .COMPLEX PRN Blood Pressure ##0 [HAWTHORN] See Rx Instructions .Route 08/04/17 03/27/22 History .COMPLEX PRN Blood Pressure ##0 Allergies Allergy/AdvReac Type Severity Reaction Status Date / Time Penicillins [PENICILLINS] Allergy Severe Swelling Verified 03/27/22 03:42 of Lip/Tongue/Throat Review of Systems Review of Systems Narrative: All 12 point systems reviewed with the patient and are negative except otherwise documented. Exam Vital Signs (past 8 hours): - 03/26/22 19:30 03/26/22 19:30 03/26/22 23:25 Temperature 97.7 F Pulse Rate 86 68 Respiratory Rate 23 18 Blood Pressure 160/74 H 167/80 H Pulse Oximetry 98 98 Oxygen Delivery Method Oxygen Flow Rate 0 03/26/22 20:42 03/27/22 00:42 03/26/22 23:00 Temperature Pulse Rate Respiratory Rate Blood Pressure Pulse Oximetry 98 98 Oxygen Delivery Method Room Air Room Air Room Air Oxygen Flow Rate 0 0 03/27/22 03:13 Temperature 97.9 F Pulse Rate 66 Respiratory Rate 18 Blood Pressure 149/77 H Pulse Oximetry 98 Oxygen Delivery Method Oxygen Flow Rate 0 Oxygen Delivery Method Room Air Oxygen Flow Rate 0 Narrative Exam Narrative: General: Patient is a well-developed, well-nourished in no distress at this time. HEENT: Normocephalic, atraumatic, extraocular muscles intact, oral pharynx is clear and mucous membranes are moist. Neck is supple and symmetric, trachea is midline, no adenopathy, no thyroid enlargement, nontender, no masses palpated. Negative for JVD Chest: Normal AP diameter and contour without kyphoscoliosis, no nasal flaring, retractions, or tachypneic labored Lungs: Auscultation of all lung smith are clear without adventitious sounds, wheezes, rhonchi, or rales. Cardio: S1 & S2 with regular rate and rhythm without rubs, or gallops, no carotid bruit, no cardiac pulsations present.1/6 murmur Abdomen: Soft nontender, negative for organomegaly, or masses. Bowel sounds are present in all 4 quadrants without guarding or rebound, no CVA tenderness. Musculoskeletal: Muscle strength and tone are equal within normal limits, no deformity, crepitus, effusions, cyanosis, clubbing or edema present. Full range of motion intact radial and pedal pulses are normal. Skin: Warm dry and intact without rashes, ulcerations or petechiae. Neuro: Alert and orientated x3, strength is +5/5 in all extremities, sensation to touch intact, no gross deficits noted of cranial nerves.GCS 15, NIH 0 Psych: Patient has a well-kept appearance, appropriate affect, mental status attitude thought context and judgment are appropriate for age. Objective Labs Result Diagrams: 03/26/22 13:40 03/26/22 13:40 Labs: Laboratory Results - last 24 hr 03/26/22 03/26/22 03/26/22 13:40 13:40 13:40 WBC 6.1 RBC 4.64 Hgb 13.7 Hct 41.8 MCV 90.1 MCH 29.5 MCHC 32.7 RDW 14.4 Plt Count 264 Neut % (Auto) 49.5 L Lymph % (Auto) 40.[address] % (Auto) 7.7 Eos % (Auto) 1.4 L Baso % (Auto) 1.2 Neut # (Auto) 3000 Lymph # (Auto) 2500 Lane # (Auto) 500 Eos # (Auto) 100 Baso # (Auto) 100 PT 11.3 INR 1.0 APTT 31 Sodium 138 Potassium 3.6 Chloride 105 Carbon Dioxide 23 BUN 17 Creatinine 1.04 Estimated GFR 57 L BUN/Creatinine Ratio 16.3 Glucose 120 H Hemoglobin A1c Calcium 10.2 Magnesium 1.7 Total Bilirubin 0.9 AST 27 ALT 16 Alkaline Phosphatase 46 Total Creatine Kinase 77 CK-MB (CK-2) TNP CK-MB (CK-2) Rel Index TNP Troponin I < 0.012 NT-Pro-B Natriuret Pep Total Protein 8.3 H Albumin 4.7 Globulin 3.6 Albumin/Globulin Ratio 1.3 Triglycerides Cholesterol LDL Cholesterol, Calc HDL Cholesterol Lipase 193 SARS-CoV-2 (PCR) 03/26/22 03/26/22 03/26/22 13:40 13:40 13:40 WBC RBC Hgb Hct MCV MCH MCHC RDW Plt Count Neut % (Auto) Lymph % (Auto) Lane % (Auto) Eos % (Auto) Baso % (Auto) Neut # (Auto) Lymph # (Auto) Lane # (Auto) Eos # (Auto) Baso # (Auto) PT INR APTT Sodium Potassium Chloride Carbon Dioxide BUN Creatinine Estimated GFR BUN/Creatinine Ratio Glucose Hemoglobin A1c 5.4 Calcium Magnesium Total Bilirubin AST ALT Alkaline Phosphatase Total Creatine Kinase CK-MB (CK-2) CK-MB (CK-2) Rel Index Troponin I NT-Pro-B Natriuret Pep 153 H Total Protein Albumin Globulin Albumin/Globulin Ratio Triglycerides 54 Cholesterol 206 H LDL Cholesterol, Calc 112 H HDL Cholesterol 83 H Lipase SARS-CoV-2 (PCR) 03/26/22 03/26/22 15:11 22:58 WBC RBC Hgb Hct MCV MCH MCHC RDW Plt Count Neut % (Auto) Lymph % (Auto) Lane % (Auto) Eos % (Auto) Baso % (Auto) Neut # (Auto) Lymph # (Auto) Lane # (Auto) Eos # (Auto) Baso # (Auto) PT INR APTT Sodium Potassium Chloride Carbon Dioxide BUN Creatinine Estimated GFR BUN/Creatinine Ratio Glucose Hemoglobin A1c Calcium Magnesium Total Bilirubin AST ALT Alkaline Phosphatase Total Creatine Kinase CK-MB (CK-2) CK-MB (CK-2) Rel Index Troponin I < 0.012 NT-Pro-B Natriuret Pep Total Protein Albumin Globulin Albumin/Globulin Ratio Triglycerides Cholesterol LDL Cholesterol, Calc HDL Cholesterol Lipase SARS-CoV-2 (PCR) Negative Assessment & Plan Assessment & Plan narrative: Meg Luais a 61-year-old female with history of atypical migraine, hypertension who presents with complaint of near syncopal episodes with blurry vision , and expressive aphasia symptoms started about a week ago, admitted for rule out TIA vs CVA. 1. Neurological deficit, (vision change, expressive aphasia, near syncope), acut e, present on admission-resolved -TIA versus CVA -head neck CTA -?Incidental note is made of: Apparent 1 cm rim calcified right frontal extra-axial meningioma Cervical spine degenerative change - head CT -No acute intracranial abnormality. Chronic microvascular ischemic disease. Probable small calcified right frontal meningioma. -chest x-ray negative, troponin x1 negative -NIH :0, GCS:15 -MR-pending -echo ordered -telemedicine -neuro checks q.4 hours -Plavix, Lipitor, ASA -A1C, Lipids, BNP, trend Trop -consult PT, OT, speech therapy -Recommend referral to Neurology on discharge for follow-up 2. Essential hypertension, uncontrolled, acute on chronic, present on admission -presenting blood pressure 171/83 -allow permissive hypertension -continue losartan 50 mg Code status:Full Surrogate decision maker: Cailin Henry Daughter COVID PCR:Negative DVT/VTE prophylaxis: Lovenox and SCDs Disposition: Patient admitted for observation, TIA versus CVA rule out, expected length of stay less than 2 midnights. I have utilized all available immediate resources to obtain, update, or review the patient's current medications. I confirmed that the patient's advanced care plan is present, Code status is documented and/or surrogate decision maker is listed in the patient's medical record. Time Spent With Patient Critical Care time: I spent a total of [] minutes of critical care time on this patient's care today; this time is exclusive of procedural time. Quality VTE Deep Vein Thrombosis/Pulmonary Embolism Present on Admission: No
[2022-03-27 03:33] LABS: Appearance Urine UA CLEAR; Bilirubin Urine UA NEGATIVE (NEGATIVE); Color Urine UA YELLOW; Glucose Urine UA NEGATIVE (Negative); Ketones Urine UA NEGATIVE (NEGATIVE); Leukocyte Esterase Urine UA NEGATIVE (NEGATIVE); Nitrite Urine UA NEGATIVE (Negative); Occult Blood Urine UA NEGATIVE (Negative); Protein Urine UA NEGATIVE (Negative); Specific Gravity Urine UA <=1.005 (1.000-1.035); Urobilinogen Urine UA 0.2 E.U./dL (0.2)
[2022-03-27 03:43] LABS: Bacteria Urine None Seen; Culture Indicated Urine Cult Not Indicated; RBC Urine None Seen (0-5/HPF); WBC Urine 0-1/HPF (0-5/HPF)
[2022-03-27 04:00] VITALS: O2SAT 98
[2022-03-27 07:00] VITALS: BP 143/48; PULSE 88; RESP 17; TEMP 36.6; O2SAT 93
--- NOTE | 2022-03-27 07:49 | PM.PN.1 ---
Exam Vital Signs (past 8 hours): - 03/27/22 00:42 03/27/22 03:13 03/27/22 04:00 Temperature 97.9 F Pulse Rate 66 Respiratory Rate 18 Blood Pressure 149/77 H Pulse Oximetry 98 98 98 Oxygen Delivery Method Room Air Room Air Oxygen Flow Rate 0 0 0 Oxygen Delivery Method Room Air Oxygen Flow Rate 0 Objective Labs Result Diagrams: 03/26/22 13:40 03/26/22 13:40 Labs: Laboratory Results - last 24 hr 03/26/22 03/26/22 03/26/22 13:40 13:40 13:40 WBC 6.1 RBC 4.64 Hgb 13.7 Hct 41.8 MCV 90.1 MCH 29.5 MCHC 32.7 RDW 14.4 Plt Count 264 Neut % (Auto) 49.5 L Lymph % (Auto) 40.2 H [place] % (Auto) 7.7 Eos % (Auto) 1.4 L Baso % (Auto) 1.2 Neut # (Auto) 3000 Lymph # (Auto) 2500 [place] # (Auto) 500 Eos # (Auto) 100 Baso # (Auto) 100 PT 11.3 INR 1.0 APTT 31 Sodium 138 Potassium 3.6 Chloride 105 Carbon Dioxide 23 BUN 17 Creatinine 1.04 Estimated GFR 57 L BUN/Creatinine Ratio 16.3 Glucose 120 H Hemoglobin A1c Calcium 10.2 Magnesium 1.7 Total Bilirubin 0.9 AST 27 ALT 16 Alkaline Phosphatase 46 Total Creatine Kinase 77 CK-MB (CK-2) TNP CK-MB (CK-2) Rel Index TNP Troponin I < 0.012 NT-Pro-B Natriuret Pep Total Protein 8.3 H Albumin 4.7 Globulin 3.6 Albumin/Globulin Ratio 1.3 Triglycerides Cholesterol LDL Cholesterol, Calc HDL Cholesterol Lipase 193 Urine Color Urine Appearance Urine pH Ur Specific [place] Urine Protein Urine Glucose (UA) Urine Ketones Urine Occult Blood Urine Nitrate Urine Bilirubin Urine Urobilinogen Ur Leukocyte Esterase Urine RBC Urine WBC Urine Bacteria Ur Culture Indicated? SARS-CoV-2 (PCR) 03/26/22 03/26/22 03/26/22 13:40 13:40 13:40 WBC RBC Hgb Hct MCV MCH MCHC RDW Plt Count Neut % (Auto) Lymph % (Auto) [place] % (Auto) Eos % (Auto) Baso % (Auto) Neut # (Auto) Lymph # (Auto) [place] # (Auto) Eos # (Auto) Baso # (Auto) PT INR APTT Sodium Potassium Chloride Carbon Dioxide BUN Creatinine Estimated GFR BUN/Creatinine Ratio Glucose Hemoglobin A1c 5.4 Calcium Magnesium Total Bilirubin AST ALT Alkaline Phosphatase Total Creatine Kinase CK-MB (CK-2) CK-MB (CK-2) Rel Index Troponin I NT-Pro-B Natriuret Pep 153 H Total Protein Albumin Globulin Albumin/Globulin Ratio Triglycerides 54 Cholesterol 206 H LDL Cholesterol, Calc 112 H HDL Cholesterol 83 H Lipase Urine Color Urine Appearance Urine pH Ur Specific [place] Urine Protein Urine Glucose (UA) Urine Ketones Urine Occult Blood Urine Nitrate Urine Bilirubin Urine Urobilinogen Ur Leukocyte Esterase Urine RBC Urine WBC Urine Bacteria Ur Culture Indicated? SARS-CoV-2 (PCR) 03/26/22 03/26/22 03/27/22 15:11 22:58 02:50 WBC RBC Hgb Hct MCV MCH MCHC RDW Plt Count Neut % (Auto) Lymph % (Auto) [place] % (Auto) Eos % (Auto) Baso % (Auto) Neut # (Auto) Lymph # (Auto) [place] # (Auto) Eos # (Auto) Baso # (Auto) PT INR APTT Sodium Potassium Chloride Carbon Dioxide BUN Creatinine Estimated GFR BUN/Creatinine Ratio Glucose Hemoglobin A1c Calcium Magnesium Total Bilirubin AST ALT Alkaline Phosphatase Total Creatine Kinase CK-MB (CK-2) CK-MB (CK-2) Rel Index Troponin I < 0.012 NT-Pro-B Natriuret Pep Total Protein Albumin Globulin Albumin/Globulin Ratio Triglycerides Cholesterol LDL Cholesterol, Calc HDL Cholesterol Lipase Urine Color Yellow Urine Appearance Clear Urine pH 6.0 Ur Specific [place] <=1.005 Urine Protein Negative Urine Glucose (UA) Negative Urine Ketones Negative Urine Occult Blood Negative Urine Nitrate Negative Urine Bilirubin Negative Urine Urobilinogen 0.2 Ur Leukocyte Esterase Negative Urine RBC None seen Urine WBC 0-1/hpf Urine Bacteria None seen Ur Culture Indicated? Cult not indicated SARS-CoV-2 (PCR) Negative [facility] Medical History Essential hypertension Heart murmur Hypertension Kidney stone Surgical History (Updated 03/27/22 @ 03:40 by EMELYN Quevedo) History of appendectomy History of hysterectomy Family History (Updated 03/27/22 @ 03:41 by EMELYN Quevedo) Mother Cancer Father Congestive heart failure Hypertension Sister Heart attack Social History household members: children Smoking Status: Never smoker alcohol intake: current Assessment & Plan Time Spent With Patient Critical Care time: I spent a total of [] minutes of critical care time on this patient's care today; this time is exclusive of procedural time. Quality VTE Deep Vein Thrombosis/Pulmonary Embolism Present on Admission: No
--- NOTE | 2022-03-27 07:57 | PM.DS.1 ---
History of Present Illness History of Present Illness Date Patient Seen: 03/27/22 Time Patient Seen: 09:07 Chief complaint: near syncope Narrative: Meg Ibarra?is a 61-year-old female with history of atypical migraine, hypertension who presents with complaint of near syncopal episodes with blurry vision , and expressive aphasia symptoms started about a week ago have been intermittent but typically when she is standing.? Patient initially had some blurry vision in the ED but now has resolved.? She also demonstrated expressive aphasia while in the ambulance, she had trouble repeating words. knew what she wanted to say but could not repeat a sentence back to the EMS medics, her daughter reported in ED that she had trouble expressing herself earlier today.?History of silent migraines states she will get an aura but has not had any recently.? She describes dizziness and near syncopal episodes with tunnel vision.?? Patient reported hypotensive 103/62 at home but recheck in ED 128/60.? All symptoms have resolved upon admit exam.? Patient did report some slight skin sensation changes to the anterior right thigh and the bottom of the right foot that has persistent since March 20.? Patient denies headache,? No loss of consciousness, vertigo symptoms, URI s/s, tinnitus, changes in hearing, chest pain, shortness of breath, difficulty with speech, swallowing, balance, coordination, dexterity, tingling, no weakness, no issues with bowel movements, urination or swelling of extremities, abdominal pain, nausea, vomiting, diarrhea, fever, body aches, chills, recent illness injury or trauma.? Patient is on 50 mg losartan daily, she is had a hysterectomy, she is allergic to penicillin and shrimp, no tobacco, she is 2 or 3 alcoholic drinks weekly, no illicit.? Her primary care is through [facility].? Patient is sitting comfortably in ED room during admit exam in no distress at this time.? Vital signs are stable temp 98.4?, BP slightly elevated 171/83, HR 83 patient is slightly tachypneic with an RR 22, O2 saturation 98% on room air.? Patient's CBC and CMP and liver panel all within normal limits with the exception of glucose 120, GFR 57, initial troponin WNL, NIH of 0, COVID is negative, BNP 153, head neck CTA is negative for any acute intracranial processes, head CT negative for any acute intracranial processes, chest x-ray negative for any acute cardio pulmonary processes.? EKG sinus rhythm with a rate of [address] or T-wave changes there is a noted Q-wave in leads 3 and AVF seen on previous EKG.? Patient admitted for neurological deficit blurry vision, expressive aphasia, near-syncope rule out TIA vs CVA. Discharge Providers Provider Date of admission: 03/26/22 22:51 Discharge Date: 03/27/22 Primary care physician: Caleb Dunbar MD Consults: 03/26/22 20:45 Consult to Occupational Therapy Evaluate & Treat Comment: neuro deficit Physician Instructions: Evaluate and treat Consult to Physical Therapy Evaluate & Treat Comment: neuro deficit Physician Instructions: Evaluate and Treat Consult to Speech Therapy Evaluate & Treat Comment: Expressive aphasia Physician Instructions: Evaluate and treat Discharge provider: Stevo Ramirez DO Summary Hospital Course Discharge Diagnosis: 1. 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 Chronic microvascular ischemic disease. Probable small calcified right frontal meningioma. -chest x-ray negative, troponin x1 negative -NIH :0, GCS:15 -MR brain with no stroke but Extensive confluent subcortical and periventricular areas of white matter T2 hyperintensity redemonstrated.? The findings are nonspecific and the differential includes severe chronic small vessel ischemic changes versus infectious or inflammatory processes such as demyelinating disease.? ? -echo ordered -telemedicine -neuro checks q.4 hours -Plavix, Lipitor, ASA -A1C, Lipids, BNP, trend Trop -consult PT, OT, speech therapy -Recommend referral to Neurology on discharge for follow-up 2. Essential hypertension, uncontrolled, acute on chronic, present on admission -presenting blood pressure 171/83 -allow permissive hypertension -continue losartan 50 mg Hospital Course: Admitted for possible TIA due to syncope and aphasia. No evidence of stroke found on MRI brain but extensive white matter intensities which may represent chronic ischemic changes vs multiple sclerosis. Echo normal with no PFO. Discharged to f/u with PCP for referral to neurologist. Time Spent with Patient Time spent: Greater than 30 minutes Exam Vital Signs (past 8 hours): - 03/27/22 00:42 03/27/22 03:13 03/27/22 04:00 Temperature 97.9 F Pulse Rate 66 Respiratory Rate 18 Blood Pressure 149/77 H Pulse Oximetry 98 98 98 Oxygen Delivery Method Room Air Room Air Oxygen Flow Rate 0 0 0 Oxygen Delivery Method Room Air Oxygen Flow Rate 0 Narrative Exam Narrative: General: Patient is a well-developed, well-nourished in no distress at this time. HEENT: Normocephalic, atraumatic, extraocular muscles intact, oral pharynx is clear and mucous membranes are moist. Neck is supple and symmetric, trachea is midline, no adenopathy, no thyroid enlargement, nontender, no masses palpated. Negative for JVD Chest: Normal AP diameter and contour without kyphoscoliosis, no nasal flaring, retractions, or tachypneic labored Lungs: Auscultation of all lung smith are clear without adventitious sounds, wheezes, rhonchi, or rales. Cardio: S1 & S2 with regular rate and rhythm without rubs, or gallops, no carotid bruit, no cardiac pulsations present.1/6 murmur Abdomen: Soft nontender, negative for organomegaly, or masses. Bowel sounds are present in all 4 quadrants without guarding or rebound, no CVA tenderness. Musculoskeletal: Muscle strength and tone are equal within normal limits, no deformity, crepitus, effusions, cyanosis, clubbing or edema present. Full range of motion intact radial and pedal pulses are normal. Skin: Warm dry and intact without rashes, ulcerations or petechiae. Neuro: Alert and orientated x3, strength is +5/5 in all extremities, sensation to touch intact, no gross deficits noted of cranial nerves.GCS 15, NIH 0 Psych: Patient has a well-kept appearance, appropriate affect, mental status attitude thought context and judgment are appropriate for age. Objective Labs Result Diagrams: 03/26/22 13:40 03/26/22 13:40 Labs: Laboratory Results - last 24 hr 03/26/22 03/26/22 03/26/22 13:40 13:40 13:40 WBC 6.1 RBC 4.64 Hgb 13.7 Hct 41.8 MCV 90.1 MCH 29.5 MCHC 32.7 RDW 14.4 Plt Count 264 Neut % (Auto) 49.5 L Lymph % (Auto) 40.2 H [place] % (Auto) 7.7 Eos % (Auto) 1.4 L Baso % (Auto) 1.2 Neut # (Auto) 3000 Lymph # (Auto) 2500 [place] # (Auto) 500 Eos # (Auto) 100 Baso # (Auto) 100 PT 11.3 INR 1.0 APTT 31 Sodium 138 Potassium 3.6 Chloride 105 Carbon Dioxide 23 BUN 17 Creatinine 1.04 Estimated GFR 57 L BUN/Creatinine Ratio 16.3 Glucose 120 H Hemoglobin A1c Calcium 10.2 Magnesium 1.7 Total Bilirubin 0.9 AST 27 ALT 16 Alkaline Phosphatase 46 Total Creatine Kinase 77 CK-MB (CK-2) TNP CK-MB (CK-2) Rel Index TNP Troponin I < 0.012 NT-Pro-B Natriuret Pep Total Protein 8.3 H Albumin 4.7 Globulin 3.6 Albumin/Globulin Ratio 1.3 Triglycerides Cholesterol LDL Cholesterol, Calc HDL Cholesterol Lipase 193 Urine Color Urine Appearance Urine pH Ur Specific [place] Urine Protein Urine Glucose (UA) Urine Ketones Urine Occult Blood Urine Nitrate Urine Bilirubin Urine Urobilinogen Ur Leukocyte Esterase Urine RBC Urine WBC Urine Bacteria Ur Culture Indicated? SARS-CoV-2 (PCR) 03/26/22 03/26/22 03/26/22 13:40 13:40 13:40 WBC RBC Hgb Hct MCV MCH MCHC RDW Plt Count Neut % (Auto) Lymph % (Auto) [place] % (Auto) Eos % (Auto) Baso % (Auto) Neut # (Auto) Lymph # (Auto) [place] # (Auto) Eos # (Auto) Baso # (Auto) PT INR APTT Sodium Potassium Chloride Carbon Dioxide BUN Creatinine Estimated GFR BUN/Creatinine Ratio Glucose Hemoglobin A1c 5.4 Calcium Magnesium Total Bilirubin AST ALT Alkaline Phosphatase Total Creatine Kinase CK-MB (CK-2) CK-MB (CK-2) Rel Index Troponin I NT-Pro-B Natriuret Pep 153 H Total Protein Albumin Globulin Albumin/Globulin Ratio Triglycerides 54 Cholesterol 206 H LDL Cholesterol, Calc 112 H HDL Cholesterol 83 H Lipase Urine Color Urine Appearance Urine pH Ur Specific [place] Urine Protein Urine Glucose (UA) Urine Ketones Urine Occult Blood Urine Nitrate Urine Bilirubin Urine Urobilinogen Ur Leukocyte Esterase Urine RBC Urine WBC Urine Bacteria Ur Culture Indicated? SARS-CoV-2 (PCR) 03/26/22 03/26/22 03/27/22 15:11 22:58 02:50 WBC RBC Hgb Hct MCV MCH MCHC RDW Plt Count Neut % (Auto) Lymph % (Auto) [place] % (Auto) Eos % (Auto) Baso % (Auto) Neut # (Auto) Lymph # (Auto) [place] # (Auto) Eos # (Auto) Baso # (Auto) PT INR APTT Sodium Potassium Chloride Carbon Dioxide BUN Creatinine Estimated GFR BUN/Creatinine Ratio Glucose Hemoglobin A1c Calcium Magnesium Total Bilirubin AST ALT Alkaline Phosphatase Total Creatine Kinase CK-MB (CK-2) CK-MB (CK-2) Rel Index Troponin I < 0.012 NT-Pro-B Natriuret Pep Total Protein Albumin Globulin Albumin/Globulin Ratio Triglycerides Cholesterol LDL Cholesterol, Calc HDL Cholesterol Lipase Urine Color Yellow Urine Appearance Clear Urine pH 6.0 Ur Specific [place] <=1.005 Urine Protein Negative Urine Glucose (UA) Negative Urine Ketones Negative Urine Occult Blood Negative Urine Nitrate Negative Urine Bilirubin Negative Urine Urobilinogen 0.2 Ur Leukocyte Esterase Negative Urine RBC None seen Urine WBC 0-1/hpf Urine Bacteria None seen Ur Culture Indicated? Cult not indicated SARS-CoV-2 (PCR) Negative [facility] Medical History Essential hypertension Heart murmur Hypertension Kidney stone Surgical History (Updated 03/27/22 @ 03:40 [facility] History of appendectomy History of hysterectomy Family History (Updated 03/27/22 @ 03:41 by Bhumika Willett SOFTWARE [facility]) Mother Cancer Father Congestive heart failure Hypertension Sister Heart attack Social History household members: children Smoking Status: Never smoker alcohol intake: current Discharge Plan Discharge Plan Patient Disposition: Home Provider Discharge Comment: Your symptoms were concerning for a stroke but we found no evidence of one. Therefore you may have had a ministroke or TIA so we are treating this with aspirin and plavix for 20 days then stop the plavix and continue the aspirin indefinitely. We've also put you on a statin as your cholesterol was high. Your brain MRI showed nonspecific findings of possible chronic microvessel damage or inflammatory changes which could sometimes be seen in MS (multiple sclerosis). You should get a referral from your PCP to a neurologist to evaluate this further. Discharge orders & Medications Prescriptions: New atorvastatin 20 mg tablet 20 mg PO BEDTIME Qty: 30 0RF clopidogrel 75 mg Tablet 75 mg PO DAILY 20 Days Qty: 20 0RF aspirin 81 mg capsule 81 mg PO DAILY Qty: 90 0RF Continued [COD LIVER OIL] capsule See Rx Instructions .ROUTE .COMPLEX PRN (Reason: Blood Pressure) Qty: 0 Rx Instructions: Take 3 capsules QD PO [HAWTHORN] liquid See Rx Instructions .ROUTE .COMPLEX PRN (Reason: Blood Pressure) Qty: 0 Rx Instructions: 16 gtts PO QD for cardiac health;SUPPLEMENT losartan 50 mg tablet 50 mg PO DAILY Label Comments: Take one tablet by oral route once daily Follow up/Referrals: Caleb Dunbar MD [Primary Care Provider] - Discharge Data Primary Care Provider: Caleb Dunbar Quality VTE Deep Vein Thrombosis/Pulmonary Embolism Present on Admission: No
[2022-03-27 08:00] VITALS: O2SAT 93
[2022-03-27 08:58] LABS: Troponin I < 0.012 ng/mL (0.01-0.034)
[2022-03-27] MEDS: CLOPIDOGREL 75 MG TABLET PO (09:57)
[2022-03-27] MEDS: ASPIRIN EC 325 MG TABLET PO (09:57)
[2022-03-27 10:33] LABS: BUN Creatinine Ratio 15.2 (6-22); Blood Urea Nitrogen 12 mg/dL (7-17); Calcium 9.8 mg/dL (8.4-10.2); Carbon Dioxide 25 mmol/L (22-32); Chloride 106 mmol/L (98-107); Estimated Glomerular Filt Rate > 60 mL/min (>60); Glucose 96 mg/dL (80-110); HEMOLYSIS < 15 (0-50); Potassium 4.6 mmol/L (3.4-5.1); Sodium 137 mmol/L (137-145)
--- NOTE | 2022-03-27 11:15 | OT.IP.EVAL ---
Past Medical History (Last Reviewed 03/27/22 @ 03:40 by [facility] Essential hypertension Heart murmur Hypertension Kidney stone Surgical History (Last Updated 03/27/22 @ 03:40 by [facility] History of appendectomy History of hysterectomy Occupational Therapy Inpatient Evaluation/Re-Eval M1 PT/OT-IP Prior Functional Status Start: 03/27/22 13:18 Freq: NEEDED Status: Active Protocol: Document 03/27/22 10:35 [facility] (Rec: 03/27/22 13:36 [facility] [id number]) Medical Review Prior Functional Status Communication Independent Mobility and Gait Pt uses a walking stick to walk on the property and use of surfaces while in her RV. Activities of Daily Living and IADL's Completely independent with ADL, IADL, and taking care of her chickens. Pt lives on her daughter's property. Prior Functional Level (Other details) Information from pt's house in which she will stay with initially. Social History Household Members children Living Arrangements House Number of Floors (Floors) One Floor Number of Stairs To Enter/Railing? 3 steps with no rails. Home Environment Standard Height Toilet,Tub/ Shower Additional Social History Comment Pt has a walking stick. M2 OT-IP Current Condition Start: 03/27/22 13:18 Freq: Status: Active Protocol: Document 03/27/22 10:35 [facility] (Rec: 03/27/22 13:36 [facility] [id number]) Occupational Therapy Current Condition Current Condition Evaluation Date 03/27/22 Treatment Diagnosis Near Syncope Diagnosis Onset Date 03/26/22 M3 OT- IP Subjective and Pain Start: 03/27/22 13:18 Freq: Status: Active Protocol: Document 03/27/22 10:35 [facility] (Rec: 03/27/22 13:36 [facility] [id number]) OT- Subjective Occupational Therapy Visit Type Type Initial Evaluation Visit Start Time 10:35 Visit Stop Time 11:15 Total Visit Minutes 40 Occupational Therapy Visit Comments Patient Comments Pt agreed to do OT eval and hospitalist present for part of the session. Pt's daughter in the room. Patient/Caregiver Goals TO go home. OT Pain Assessment Pain When Pain Assessed At Rest Pain Present Pain Present Denied Pain M4 OT- IP ADL's Start: 03/27/22 13:18 Freq: Status: Active Protocol: Document 03/27/22 10:35 [facility] (Rec: 03/27/22 13:36 [facility] [id number]) OT CBP-Cbat-Ytutymm General Evaluation Self-Feeding Ability Independent OT ADL-Grooming General Evaluation Grooming Ability Independent Comments OT Grooming Comments while standing at the sink OT ADL-Oral Care General Eval Oral Care Ability Independent OT ADL-Dressing General Eval Lower Body Dressing Ability Independent Comments OT Dressing Comments Pt able to independently alondra/ doff her socks while sitting down. OT ADL-Toileting General Evaluation Toileting Ability Independent OT ADL-Bathing Comments OT Bathing Comments It would be beneficial for pt to shower when someone present on the house and use of shower chair for safety. M5 OT- IP IADL's Start: 03/27/22 13:18 Freq: Status: Active Protocol: Document 03/27/22 10:35 [facility] (Rec: 03/27/22 13:36 [facility] [id number]) OT-Instrumental Activities of Daily Living Home Safety Awareness Awareness of Need for Assistance at Home Good Awareness Ability to Problem Solve Emergency Able to Problem Solve Situations Home Safety Comments Pt's daughter states to be there to assist with her needs as needed. Medication Management Medication Management Comments Would be best for pt to have supervision as now will be taking more than one medications. M6 OT- IP Functional Cognition Start: 03/27/22 13:18 Freq: Status: Active Protocol: Document 03/27/22 10:35 [facility] (Rec: 03/27/22 13:36 [facility] [id number]) Cognitive Factors Limiting Selfcare Function Cognitive Ability Level of Alertness Alert Patient Orientation Name,Place,Situation Attention Span Ability Capable of Focused Attention, Capable of Sustained Attention Ability to Follow Commands Able to Follow One Step Commands Memory Description Short Term Impaired Executive Function Ability Unable to Filter Distractions, Unable to Remember Details Cognitive Comments Cognitive Assessment Comments Pt started off doing well with [place] Making Part B and then got distract by an alarm going off and got off track and not then needing MAX vc to try to complete the task. At this time would be best for pt not to drive, pt's daughter aware and agrees. Pt states prior has poor short term memory. OT- Vision and Hearing OT- Vision Assessment Vision Assessment Comments Complains of blurred vision on the right at times, but feels it is from her cataracts . M7 OT- IP Mobility and Balance Start: 03/27/22 13:18 Freq: Status: Active Protocol: Document 03/27/22 10:35 [facility] (Rec: 03/27/22 13:36 [facility] [id number]) OT- Bed Mobility Assessment Supine to Sit Supine to Sit Assist Independent Sit to Supine Sit to Supine Assist Independent Scooting Scooting to Edge of Bed Independent OT-Transfer Assessment Sit to and From Stand Sit to and from Stand Independent Transfers Transfer Ability Standby Assistance Technique Transfer Destination Bed,Chair Transfer Technique Stand Step Pivot Devices Transfer Assistive Devices None Comments Mobility Comments Pt able to get into and out of the bed independently and initially on her feet needing to hold to surfaces occasionally for her balance. Orthostatic BP taken and no issues noted. OT- Balance Assessment Sitting Balance and Reactions Static Sitting Balance Ability Normal Dynamic Sitting Balance Ability Normal Standing Balance and Reactions Static Standing Balance Ability Good Dynamic Standing Balance Ability Fair M8 OT- IP Objective Assessments Start: 03/27/22 13:18 Freq: Status: Active Protocol: Document 03/27/22 10:35 [facility] (Rec: 03/27/22 13:36 [facility] [id number]) OT Gross Range of Motion Upper Extremity Range of Motion Assessment Within Functional Limits OT Strength Upper Extremity Strength Assessment Within Functional Limits OT- Coordination Assessment Upper Extremity Finger to Nose Test Within Functional Limits Finger Tapping Test Within Functional Limits OT-Muscle Tone Assessment Muscle Tone WNL Yes M9 OT- IP Assessment and Plan Start: 03/27/22 13:18 Freq: Status: Active Protocol: Document 03/27/22 10:35 [facility] (Rec: 03/27/22 13:36 [facility] [id number]) OT Summary Assessment and Plan Potential Rehabilitation Potential Good Analytic Complexity at Evaluation Low Summary OT Impairments Balance,Functional Cognition Progress Towards Goals Progressing Toward Goals Assessment Summary Pt low complexity and main barriers are decreased dynamic balance, and easily gets distracted which affect her cognitive function. Pt has a supportive daughter who will be assisting pt at home and aware of suggestion of safety concern if pt wanting to drive . Goals Bathing Goal Independent Days to Meet Goals 2 Frequency of Treatment Frequency Of Treatment Once a Day Treatment Plan OT Treatment Plan ADL Training,Functional Mobility,Patient/Family Education,Discharge Planning Discharge Recommendations OT Discharge Recommendations Home with Assistance Home Equipment Needs shower chair Transportation Needs at Discharge Private Vehicle
[2022-03-27 12:00] VITALS: O2SAT 94
--- NOTE | 2022-03-27 12:27 | PT-IP ANOTE ---
Physical therapy evaluation order received. Pt is up ambulating independently in room. She reports no difficulty walking today. She is discharging home. Her family plans to help her at home as needed. She is very active and independent at baseline. Full Physical therapy evaluation not needed at this time.
--- NOTE | 2022-03-27 12:37 | PC.NURSE ---
Pt is A&Ox3, VSS, afebrile on RA. She has very slight wobbly feeling on initial getting out of bed but resolves, she states she had been lying down for a long time. She is SBA. Echo completed at bedside, and labs drawn this a.m. at bedside this am clearing patient for discharge with new medications and recommendations.She and daughter at bedside verbalize understanding of discharge plan and ask appropriate questions. PT, OT and ARMOURED CAR ESCORT evaluate patient this a.m. Pt's daughter is supportive and helpful. Patient is escorted via w/ch with all of her belongings to private vehicle for discharge home with her daughter shortly after lunch at 1235 this afternoon.
--- NOTE | 2022-03-27 12:47 | ST.IPSCREEN ---
The pt was standing in the room with daughter when BUSINESS COMPUTERS TEACHER arrived. She spoke clearly and reported all symptoms she had been experiencing had resolved. Pt stated MRI came back negative and the hospitalist had referred her to a content production specialist due to concerns for MS. Pt presented with symmetrical structures at rest and in motion, dentition present and WNL. Rate of speech was WNL and vocal quality was clear and WNL. Pt reported no difficulty swallowing and exhibited no overt signs of aspiration when drinking thin liquid through a straw cup. Speech therapy is not indicated at this time. Provided pt education regarding the role of a speech therapist if a diagnosis of MS occurs. Pt and daughter expressed understanding.
== END 2022-03-27 12:35 | disposition home or self-care (01) ==
LOC: ED 20:01 → AC 23:19
PROVIDERS: Admitting Provider Nurse Practitioner Family; Emergency Provider Emergency Medicine; PCP Psychiatry & Neurology Forensic Psychiatry; Referring Provider Emergency Medicine; Visit Provider Nurse Practitioner Family
DX: H53.8 Other visual disturbances (principal); R47.01 Aphasia; R55 Syncope and collapse; I10 Essential (primary) hypertension; E78.5 Hyperlipidemia, unspecified; Z20.822 Contact with and (suspected) exposure to COVID-19
CPT/HCPCS: 36415; 70450; 70496; 70498; 70551; 71045; 80048; 80053; 80061; 81001; 81003; 82550; 83036; 83690; 83735; 83880; 84484; 85025; 85610; 85730; 87635; 93005; 93306; 97165; 97530; 99284; C9803; G0378; Q9967

== ENCOUNTER 2024-02-29 14:51 | Emergency (ER) | payer MEDICARE, MEDICAID, SELFPAY ==
[2022-03-26 23:00] VITALS: BMI 24.7
[2024-02-29] VITALS (11 sets, daily range): BP systolic 127–182; BP diastolic 71–88; PULSE 70–91; RESP 18–47; TEMP 36.6–36.7; O2SAT 99; BMI 22.4
--- NOTE | 2024-02-29 15:00 | DI.RAD.S_ITS ---
PROCEDURE: XR CHEST 1V INDICATIONS: Shortness of breath TECHNIQUE: One view of the chest was acquired. COMPARISON: [facility], CR, XR CHEST 1V, 03/26/2022, 14:23. FINDINGS: Surgical changes and devices: None. Lungs and pleura: Subtle small airspace opacities are seen scattered in left mid to lower lung field and right lower lung field. No pleural effusions or pneumothorax. Mediastinum: Mediastinal contours appear normal. Heart size is normal. Bones and chest wall: No suspicious bony lesions. Overlying soft tissues appear unremarkable. IMPRESSION: Suggestion of small bilateral lower lobe infiltrates versus atelectasis. No pleural effusion or pneumothorax. Dictated by: Frederick Soriano M.D. on 02/29/2024 at 15:25 Approved by: Frederick Soriano M.D. on 02/29/2024 at 15:26
--- NOTE | 2024-02-29 15:06 | EKG_ITS ---
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
--- NOTE | 2024-02-29 15:06 | ED.WEAKNESS ---
HPI - Weakness General Chief complaint: Shortness of Breath/Dyspnea Stated complaint: SOB/ Weakness Time Seen by Provider: 02/29/24 15:04 History of Present Illness HPI Narrative: Patient is a 73-year-old female with past medical history of hyperlipidemia hypertension brought into the ED via EMS for evaluation of cough, generalized weakness. Ongoing and persistent for the past 2 weeks. States that this started when she felt like she had a chest cold secondary to cough, however due to persistent symptoms decided come into the ED for further evaluation treatment. She denies any trauma or falls. She denies any headache visual disturbances chest pain fever chills nausea vomiting abdominal pain or any other GI/ symptoms time. States that she is having some mild shortness of breath only associated with cough. Has not fallen, states that she uses a walker at baseline. Related Data Home Medications Medication Instructions Recorded Confirmed [COD LIVER OIL] See Rx Instructions .Route 08/04/17 03/27/22 .COMPLEX PRN Blood Pressure ##0 [HAWTHORN] See Rx Instructions .Route 08/04/17 03/27/22 .COMPLEX PRN Blood Pressure ##0 losartan 50 mg tablet 50 mg PO DAILY 03/27/22 03/27/22 Previous Rx's Medication Instructions Recorded aspirin 81 mg capsule 81 mg PO DAILY #90 caps 03/27/22 atorvastatin 20 mg tablet 20 mg PO BEDTIME #30 tabs 03/27/22 Allergies Allergy/AdvReac Type Severity Reaction Status Date / Time Penicillins [PENICILLINS] Allergy Severe Swelling Verified 03/27/22 03:42 of Lip/Tongue/Throat shrimp Allergy Verified 03/27/22 05:58 Review of Systems Review of Systems Narrative: HEENT: Denies headache, eye drainage, eye irritation, head trauma, sore throat, voice change Cardiovascular: Denies any chest pain, palpitations, shortness of breath, tachycardia Respiratory: Denies any shortness of breath, cough, wheeze, stridor GI/: Denies any abdominal pain, nausea, vomiting, diarrhea, bright red blood per rectum, melanotic stools, urinary frequency, urinary retention, dysuria, hematuria MSK: Denies any joint pain, muscle pains, swelling Skin: Denies any rashes, lesions, discoloration Neuro: Denies any headache, lightheadedness, dizziness, fainting, Positive generalized weakness Psych: Denies SI/HI Patient History Medical History Essential hypertension Heart murmur Hypertension Kidney stone Surgical History (Updated 03/27/22 @ 03:40 by EMELYN Quevedo) History of appendectomy History of hysterectomy Family History (Updated 03/27/22 @ 03:41 by EMELYN Quevedo) Mother Cancer Father Congestive heart failure Hypertension Sister Heart attack Social History household members: children Smoking Status: Never smoker alcohol intake: current Smoking Status: Never smoker alcohol intake frequency: a few times a week Substance Use Type: does not use Exam Narrative Exam Narrative: General: Cooperative, comfortable, well-developed, not in acute distress HEENT: Normocephalic, atraumatic, PERRLA, normal sclera, eyelids normal, Neck: Active full range of motion, atraumatic Chest: Normal to inspection, negative crepitus, no overlying erythema ecchymosis Respiratory: Normal respiratory effort, not in acute respiratory distress, clear to auscultation bilaterally negative cough, wheeze, tachypnea, rhonchi, rales Cardiology: Regular rate rhythm negative gallop, murmur, rubs GI/: Normal to inspection, soft, nonrigid, no tenderness to palpation, exam deferred MSK: Full range of active range of motion of all 4 extremities, atraumatic Skin: No rashes lesions noted Neuro: Alert awake oriented x3, moves all 4 extremities spontaneously, cranial nerves intact, able to answer all questions appropriately follows commands appropriately Psych: Cooperative, negative suicidal or homicidal ideations Initial Vital Signs Initial Vital Signs: Vital Signs Temperature 97.8 F 02/29/24 15:00 Pulse Rate 87 02/29/24 15:00 Respiratory Rate 18 02/29/24 15:00 Blood Pressure 127/75 02/29/24 15:00 Pulse Oximetry 99 02/29/24 15:00 Oxygen Delivery Method Room Air 02/29/24 15:00 Course Orders Ordered: ED Orders 02/29/24 14:45 Complete Blood Count AUTO DIFF Stat Comprehensive Metabolic Panel Stat Lactate (Lactic Acid) Stat NT-proBNP (BNP-Adult 18+) Stat Prothrombin Time INR Stat Troponin I Stat 02/29/24 15:00 XR chest 1V Stat EKG-12 Lead Stat Measure peak expiratory flow ONCE RT Consult Eval and Treat NOW 02/29/24 15:25 Covid-19 + FLU A/B + RSV - PCR Stat 02/29/24 16:06 Urinalysis and Microscopic Stat Urine Culture Stat Discontinued Medications Sodium Chloride (Normal Saline 0.9%) 500 mls @ 1,000 mls/hr IV BOLUS ONE Stop: 02/29/24 15:44 Last Infusion: 02/29/24 16:20 Dose: Infused Documented By: Admin: 02/29/24 15:50 Dose: 1,000 mls/hr Documented By: MARGARETH Vital Signs Vital signs: Vital Signs - 8 hr 02/29/24 15:00 Temperature 97.8 F Pulse Rate 87 Respiratory Rate 18 Blood Pressure 127/75 Pulse Oximetry 99 Oxygen Delivery Method Room Air MDM - Weakness Differential Diagnosis Differential diagnosis: Likely acute myocardial infarction, hypoglycemia, dehydration and other ( COVID, flu, urinary tract infection) Medical Records Attestation: I reviewed the patient's medical records. Lab Data Attestation: I reviewed the patient's lab results. 02/29/24 14:45 02/29/24 14:45 Labs: Lab Results 02/29/24 02/29/24 02/29/24 Range/Units 14:45 15:25 16:06 WBC 6.0 (4.5-11.0) X10^3/uL RBC 5.13 (4.0-5.2) X10^6/uL Hgb 14.8 (12.0-16.0) g/dL Hct 44.4 (36-46) % MCV 86.5 (80-100) fL MCH 28.8 (26-34) PG MCHC 33.3 (30-36) % RDW 13.9 (11.6-14.8) % Plt Count 246 (150-400) X10^3/uL Neut % (Auto) 53.4 (50-75) % Lymph % (Auto) 33.5 (25-40) % [place] % (Auto) 11.5 (3-14) % Eos % (Auto) 1.0 L (2-4) % Baso % (Auto) 0.6 (0-2) % Neut # (Auto) 3200 (0909-2087) /uL Lymph # (Auto) 2000 (2657-9285) /uL [place] # (Auto) 700 (0-900) /uL Eos # (Auto) 100 (0-450) /uL Baso # (Auto) 0 (0-100) /uL PT 11.5 (9.4-12.5) SECONDS INR 1.0 (0.9-1.3) Sodium 138 (137-145) mmol/L Potassium 3.7 (3.4-5.1) mmol/L Chloride 104 (98-107) mmol/L Carbon Dioxide 24 (22-32) mmol/L BUN 10 (7-17) mg/dL Creatinine 0.79 (0.52-1.04) mg/dL Estimated GFR > 60 (>60) mL/min BUN/Creatinine Ratio 12.7 (6-22) Glucose 117 H (80-110) mg/dL Lactate 1.8 (0.7-2.1) mmol/L Calcium 9.9 (8.4-10.2) mg/dL Total Bilirubin 1.0 (0.2-1.3) mg/dL AST 31 (14-36) IU/L ALT 20 (<35) IU/L Alkaline Phosphatase 75 (38-126) U/L Troponin I < 0.012 (0.01-0.034) ng/mL NT-Pro-B Natriuret Pep 280 (<450) pg/mL Total Protein 8.2 (6.3-8.2) g/dL Albumin 4.5 (3.5-5.0) g/dL Globulin 3.7 (1.7-4.1) g/dL Albumin/Globulin Ratio 1.2 (1.0-2.8) Urine Color Yellow Urine Appearance Clear Urine pH 5.5 (4.5-8.0) Ur Specific [place] <=1.005 (1.000-1.035) Urine Protein Negative (Negative) Urine Glucose (UA) Negative (Negative) g/dL Urine Ketones Negative (NEGATIVE) Urine Occult Blood Negative (Negative) Urine Nitrate Negative (Negative) Urine Bilirubin Negative (NEGATIVE) Urine Urobilinogen 1.0 (0.2) E.U./dL Ur Leukocyte Esterase Trace H (NEGATIVE) Urine RBC None seen (0-5/HPF) Urine WBC None seen (0-5/HPF) Ur Squamous Epith Cells 0-1 /hpf (0-5/HPF) Urine Bacteria Few (2-10) H (None) Ur Culture Indicated? Specimen cultured Vol Urine Centrifuged 10ml (spun) SARS-CoV-2 (PCR) Positive H (Negative) Influenza A (RT-PCR) Flu a negative (NEGATIVE) Influenza B (RT-PCR) Flu b negative (NEGATIVE) RSV (PCR) Negative (Negative) ECG Data Attestation: I personally reviewed and interpreted this ECG as follows: Interpretation: EKG was interpreted ED physician, sinus at 85 beats per minute, QTC 449, normal axis, nonspecific ST changes, no STEMI MDM Narrative Medical decision making narrative: patient is a 73-year-old female with past medical history of hypertension, hyperlipidemia, comes into the ED via EMS for evaluation of persistent cough, generalized weakness. Patient with workup positive for COVID-19. Patient not requiring any supplemental oxygen, chest x-ray not concerning for any acute pneumonia, no leukocytosis, troponin negative. Patient able to stand bear weight ambulate unassisted here in the emergency department, strict return precautions given with the patient and family member at bedside they understand and agree with being discharged home with outpatient follow-up. Discharge Plan Departure Patient Disposition: Home Clinical Impression: COVID-19 Activity Restrictions/Additional Instructions: Please read the discharge instructions sheet carefully and bring all papers to all doctor follow-up visits, as it may contain information that your doctor may want to see. Disease processes change and evolve, if your symptoms worsen or if you develop any new symptoms that are concerning to you please return for evaluation. Your evaluation today does not show any evidence of any life-threatening/serious illnesses requiring admission to the hospital or surgery. Please follow-up with your doctor for re-evaluation in approximately 1 day. Seek immediate medical attention for any worrisome symptoms. Prescriptions: No Action [COD LIVER OIL] capsule See Rx Instructions .ROUTE .COMPLEX PRN (Reason: Blood Pressure) Qty: 0 Rx Instructions: Take 3 capsules QD PO [HAWTHORN] liquid See Rx Instructions .ROUTE .COMPLEX PRN (Reason: Blood Pressure) Qty: 0 Rx Instructions: 16 gtts PO QD for cardiac health;SUPPLEMENT losartan 50 mg tablet 50 mg PO DAILY Patient Comments: Take one tablet by oral route once daily atorvastatin 20 mg tablet 20 mg PO BEDTIME Qty: 30 0RF aspirin 81 mg capsule 81 mg PO DAILY Qty: 90 0RF Referrals: Caleb Dunbar MD [Primary Care Provider] - Stand Alone Forms: Patient Portal/API
[2024-02-29 15:08] LABS: Prothrombin Time 11.5 SECONDS (9.4-12.5)
[2024-02-29 15:11] LABS: Add Manual Diff / Slide Review NO; Basophils Absolute Auto 0 /uL (0-100); Basophils Percent Auto 0.6 % (0-2); Eosinophils Absolute Auto 100 /uL (0-450); Hematocrit 44.4 % (36-46); Hemoglobin 14.8 g/dL (12.0-16.0); Lactate (Lactic Acid) 1.8 mmol/L (0.7-2.1); Lymphocytes Absolute Auto 2000 /uL (1100-4500); Lymphocytes Percent Auto 33.5 % (25-40); Mean Corpuscular HGB Conc 33.3 % (30-36); Mean Corpuscular Hemoglobin 28.8 PG (26-34); Mean Corpuscular Volume 86.5 fL (80-100); Monocytes Absolute Auto 700 /uL (0-900); Monocytes Percent Auto 11.5 % (3-14); Neutrophils Absolute Auto 3200 /uL (1500-7000); Neutrophils Percent Auto 53.4 % (50-75); Platelet Count 246 X10^3/uL (150-400); Red Blood Cell Count 5.13 X10^6/uL (4.0-5.2); Red Cell Distribution Width 13.9 % (11.6-14.8)
[2024-02-29 15:12] LABS: Alanine Aminotransferase 20 IU/L (<35); Albumin 4.5 g/dL (3.5-5.0); Albumin Globulin Ratio 1.2 (1.0-2.8); Alkaline Phosphatase 75 U/L (38-126); Aspartate Aminotransferase 31 IU/L (14-36); BUN Creatinine Ratio 12.7 (6-22); Blood Urea Nitrogen 10 mg/dL (7-17); Calcium 9.9 mg/dL (8.4-10.2); Carbon Dioxide 24 mmol/L (22-32); Chloride 104 mmol/L (98-107); Estimated Glomerular Filt Rate > 60 mL/min (>60); Globulin 3.7 g/dL (1.7-4.1); Glucose 117 mg/dL (80-110); HEMOLYSIS < 15 (0-50); Potassium 3.7 mmol/L (3.4-5.1); Sodium 138 mmol/L (137-145); Total Protein 8.2 g/dL (6.3-8.2)
[2024-02-29 15:24] LABS: NT-proBNP (BNP-Adult 18+) 280 pg/mL (<450); Troponin I < 0.012 ng/mL (0.01-0.034)
[2024-02-29] MEDS: SODIUM CHLORIDE 0.9% 500 ML 1000 ML IV (15:50)
[2024-02-29 16:23] LABS: Appearance Urine UA CLEAR; Bilirubin Urine UA NEGATIVE (NEGATIVE); Color Urine UA YELLOW; Glucose Urine UA NEGATIVE (Negative); Ketones Urine UA NEGATIVE (NEGATIVE); Leukocyte Esterase Urine UA TRACE (NEGATIVE); Nitrite Urine UA NEGATIVE (Negative); Occult Blood Urine UA NEGATIVE (Negative); Protein Urine UA NEGATIVE (Negative); Specific Gravity Urine UA <=1.005 (1.000-1.035)
[2024-02-29 16:25] LABS: pH Urine UA 5.5 (4.5-8.0)
[2024-02-29 16:43] LABS: Bacteria Urine Few (2-10); RBC Urine None Seen (0-5/HPF); Squamous Epithelial Cell Urine 0-1 /HPF (0-5/HPF); Urine Volume 10mL (spun); WBC Urine None Seen (0-5/HPF)
[2024-02-29 16:44] LABS: Influenza A - CEPHEID Flu A NEGATIVE (NEGATIVE); Influenza B - CEPHEID Flu B NEGATIVE (NEGATIVE); Respiratory Syncytial Virus Negative (Negative)
[2024-02-29 16:44] LABS: Culture Indicated Urine Specimen Cultured
[2024-02-29 16:51] LABS: COVID-19 CEPHEID 4-PLEX PCR POSITIVE (Negative)
== END 2024-02-29 17:47 | disposition home or self-care (01) ==
PROVIDERS: Emergency Provider Student in an Organized Health Care Education/Training Program; PCP Psychiatry & Neurology Forensic Psychiatry
DX: U07.1 COVID-19 (principal); R53.1 Weakness; R11.2 Nausea with vomiting, unspecified
CPT/HCPCS: 0241U; 71045; 80053; 81001; 83605; 83880; 84484; 85025; 85610; 87086; 93005; 99284